=== PATIENT | male | born 1970 | race Caucasian/White ===

== ENCOUNTER 2019-08-27 23:08 | Inpatient (IN) ==
[2019-08-27] MEDS ORDERED: NARCAN ONE (23:37)
[2019-08-27] MEDS ORDERED: NARCAN IV ONE (23:41)
--- NOTE | 2019-08-28 00:01 | PROVIDER DOCUMENTATION ---
This chart was entered by Allyssa Castaneda Scribe, acting as scribe for Melany Vazquez MD. HPI-Psychological Disorder - General Chief Complaint: Unresponsive Stated Complaint: psych Time Seen by Provider: 08/27/19 23:36 Source: patient, EMS (First Response) Unable to obtain history due to:: altered Allergies/Adverse Reactions: Patient Allergies Allergy/AdvReac Type Severity Reaction Status Date / Time Unable to Assess Allergy Verified 08/27/19 23:20 Home Medications: Home Medication List Medication Instructions Recorded Confirmed Last Taken Type Unobtainable [Home Meds 08/27/19 08/27/19 Unknown History Unobtainable] - History of Present Illness-Psych Nature of Presenting Problem: Pt is a Callum Coughlin brought to the ED by EMS after they were called to a house where pt's friends stated he was "acting weird". EMS states that friend said " pt has hx of pysch issues and has recently quit taking his medication". Pt is unresponsive to voice and is pale in appearance. Onset/Duration: reports: abrupt, just prior to arrival, 1-3 hours ago Timing: reports: still present Severity: reports: severe Psychiatric Complaints: reports: altered mental status, other (responds to painful stimuli) Patient arrived by:: EMS called by spouse/family Review of Systems - Adult - REVIEW OF SYSTEMS - ADULT Constitutional: denies: chills, fever Eyes: reports: no symptoms reported Ears, Nose, Mouth & Throat: reports: no symptoms reported Cardiovascular: reports: see HPI, syncope Respiratory: reports: no symptoms reported Gastrointestinal: denies: diarrhea, vomiting Genitourinary: reports: no symptoms reported Musculoskeletal: reports: no symptoms reported Integumentary: reports: no symptoms reported Neurological: reports: see HPI, syncope Psychiatric: reports: no symptoms reported Endocrine: reports: no symptoms reported Hematologic/Lymphatic: reports: no symptoms reported Allergic/Immunologic: reports: no symptoms reported All Other Systems: Reviewed and Negative Past History - Adult - PAST MEDICAL HISTORY-ADULT Review of Records: reports: Nursing Assessment Review Physical Exam-Psych Focus - Physical Exam-Psych Exam Limited by: Altered Mental status Initial Vital Signs Reviewed: Yes (HR 120; O2 93 L RA) Appearance: disheveled Neurological: responds to pain, disoriented x 3 HENMT: normocephalic/atraumatic, other (constricted pupils; dry mucous membranes) Neck: supple, normal inspection Respiratory: no respiratory distress, no accessory muscle use, decreased breath sounds (bilaterally). negative: crackles, rales Cardiovascular: normal peripheral pulses, no murmur, tachycardia Abdominal Exam: normal bowel sounds, non tender, soft Back Exam: normal inspection Extremity: normal inspection, no pedal edema Integumentary: warm/dry, other (greyish pallor) Progress - PLAN OF CARE/RESULTS Progress/Plan/Lab Results: Vital Signs - 8 hr 08/27/19 23:12 08/28/19 00:15 Temperature 102.4 F H Pulse Rate 120 H 120 H Respiratory Rate 23 28 H Blood Pressure 131/86 121/86 O2 Sat by Pulse Oximetry 93 L 96 Laboratory Results - last 24 hr 08/27/19 08/27/19 08/27/19 00:06 00:06 23:35 WBC RBC Hgb Hct MCV MCH MCHC RDW Std Deviation Plt Count MPV Immature Gran % (Auto) Neut % (Auto) Lymph % (Auto) Hendricks % (Auto) Eos % (Auto) Baso % (Auto) Immature Gran # (Auto) Neut # (Auto) Lymph # (Auto) Hendricks # (Auto) Eos # (Auto) Baso # (Auto) PT INR PTT (Actin FS) Sodium 134 L Potassium 3.2 L Chloride 97 L Carbon Dioxide 22 L Anion Gap 16 BUN 9 Creatinine 0.6 L Estimated GFR/1.73 m2 > 60 BUN/Creatinine Ratio 15 Glucose 125 H Calculated Osmolality 268 Calcium 8.9 Total Bilirubin 0.90 AST 27 ALT 39 Alkaline Phosphatase 76 Creatine Kinase Troponin T High Sens Total Protein 7.4 Albumin 3.8 Globulin 4.0 Albumin/Globulin Ratio 1.0 Plasma Lactate Urine Source CATH Urine Color YELLOW Urine Turbidity CLEAR Urine pH 8.0 Ur Specific [place] 1.027 Urine Protein 70 A Ur Glucose (Stick) NEGATIVE Ur Ketones (Stick) 10 A Urine Blood NEGATIVE Urine Nitrite NEGATIVE Urine Bilirubin NEGATIVE Urobilinogen Dipstick 6 A Urine Leukocytes NEGATIVE Urine WBC (Auto) <10 Urine RBC (Auto) <10 U Epithel Cells (Auto) <10 Urine Bacteria (Auto) NEGATIVE Salicylates Urine Opiates Screen PRESUMPTIVE POSITIVE A Ur Oxycodone Screen NONE DETECTED Urine Methadone Screen NONE DETECTED U Propoxyphene Qual NONE DETECTED Acetaminophen < 1.2 L Ur Barbituates Screen NONE DETECTED Ur Tricyclics Screen NONE DETECTED Ur Phencyclidine Scrn NONE DETECTED Ur Amphetamines Screen PRESUMPTIVE POSITIVE A U Methamphetamines Scrn PRESUMPTIVE POSITIVE A U Benzodiazepines Scrn NONE DETECTED Urine Cocaine Screen NONE DETECTED U Cannabinoids Screen PRESUMPTIVE POSITIVE A Plasma/Serum Ethyl Alc Influenza A (Rapid) Influenza B (Rapid) 08/27/19 08/27/19 08/27/19 23:35 23:35 23:35 WBC 10.20 RBC 4.42 L Hgb 14.0 Hct 39.9 L MCV 90.3 MCH 31.7 H MCHC 35.1 RDW Std Deviation 13.3 Plt Count 195 MPV 11.0 H Immature Gran % (Auto) 0.2 Neut % (Auto) 84.6 H Lymph % (Auto) 10.3 L Hendricks % (Auto) 4.6 Eos % (Auto) 0.2 Baso % (Auto) 0.1 Immature Gran # (Auto) 0.02 Neut # (Auto) 8.63 H Lymph # (Auto) 1.05 L Hendricks # (Auto) 0.47 Eos # (Auto) 0.02 Baso # (Auto) 0.01 PT INR PTT (Actin FS) Sodium Potassium Chloride Carbon Dioxide Anion Gap BUN Creatinine Estimated GFR/1.73 m2 BUN/Creatinine Ratio Glucose Calculated Osmolality Calcium Total Bilirubin AST ALT Alkaline Phosphatase Creatine Kinase Troponin T High Sens Total Protein Albumin Globulin Albumin/Globulin Ratio Plasma Lactate 1.0 Urine Source Urine Color Urine Turbidity Urine pH Ur Specific [place] Urine Protein Ur Glucose (Stick) Ur Ketones (Stick) Urine Blood Urine Nitrite Urine Bilirubin Urobilinogen Dipstick Urine Leukocytes Urine WBC (Auto) Urine RBC (Auto) U Epithel Cells (Auto) Urine Bacteria (Auto) Salicylates Urine Opiates Screen Ur Oxycodone Screen Urine Methadone Screen U Propoxyphene Qual Acetaminophen Ur Barbituates Screen Ur Tricyclics Screen Ur Phencyclidine Scrn Ur Amphetamines Screen U Methamphetamines Scrn U Benzodiazepines Scrn Urine Cocaine Screen U Cannabinoids Screen Plasma/Serum Ethyl Alc Influenza A (Rapid) Influenza B (Rapid) 08/27/19 08/27/19 08/27/19 23:35 23:35 23:35 WBC RBC Hgb Hct MCV MCH MCHC RDW Std Deviation Plt Count MPV Immature Gran % (Auto) Neut % (Auto) Lymph % (Auto) Hendricks % (Auto) Eos % (Auto) Baso % (Auto) Immature Gran # (Auto) Neut # (Auto) Lymph # (Auto) Hendricks # (Auto) Eos # (Auto) Baso # (Auto) PT 13.2 INR 0.95 PTT (Actin FS) 25.6 Sodium Potassium Chloride Carbon Dioxide Anion Gap BUN Creatinine Estimated GFR/1.73 m2 BUN/Creatinine Ratio Glucose Calculated Osmolality Calcium Total Bilirubin AST ALT Alkaline Phosphatase Creatine Kinase 104 Troponin T High Sens 7 Total Protein Albumin Globulin Albumin/Globulin Ratio Plasma Lactate Urine Source Urine Color Urine Turbidity Urine pH Ur Specific [place] Urine Protein Ur Glucose (Stick) Ur Ketones (Stick) Urine Blood Urine Nitrite Urine Bilirubin Urobilinogen Dipstick Urine Leukocytes Urine WBC (Auto) Urine RBC (Auto) U Epithel Cells (Auto) Urine Bacteria (Auto) Salicylates Urine Opiates Screen Ur Oxycodone Screen Urine Methadone Screen U Propoxyphene Qual Acetaminophen Ur Barbituates Screen Ur Tricyclics Screen Ur Phencyclidine Scrn Ur Amphetamines Screen U Methamphetamines Scrn U Benzodiazepines Scrn Urine Cocaine Screen U Cannabinoids Screen Plasma/Serum Ethyl Alc Influenza A (Rapid) Influenza B (Rapid) 08/27/19 08/28/19 23:35 00:24 WBC RBC Hgb Hct MCV MCH MCHC RDW Std Deviation Plt Count MPV Immature Gran % (Auto) Neut % (Auto) Lymph % (Auto) Hendricks % (Auto) Eos % (Auto) Baso % (Auto) Immature Gran # (Auto) Neut # (Auto) Lymph # (Auto) Hendricks # (Auto) Eos # (Auto) Baso # (Auto) PT INR PTT (Actin FS) Sodium Potassium Chloride Carbon Dioxide Anion Gap BUN Creatinine Estimated GFR/1.73 m2 BUN/Creatinine Ratio Glucose Calculated Osmolality Calcium Total Bilirubin AST ALT Alkaline Phosphatase Creatine Kinase Troponin T High Sens Total Protein Albumin Globulin Albumin/Globulin Ratio Plasma Lactate Urine Source Urine Color Urine Turbidity Urine pH Ur Specific [place] Urine Protein Ur Glucose (Stick) Ur Ketones (Stick) Urine Blood Urine Nitrite Urine Bilirubin Urobilinogen Dipstick Urine Leukocytes Urine WBC (Auto) Urine RBC (Auto) U Epithel Cells (Auto) Urine Bacteria (Auto) Salicylates < 3.00 L Urine Opiates Screen Ur Oxycodone Screen Urine Methadone Screen U Propoxyphene Qual Acetaminophen Ur Barbituates Screen Ur Tricyclics Screen Ur Phencyclidine Scrn Ur Amphetamines Screen U Methamphetamines Scrn U Benzodiazepines Scrn Urine Cocaine Screen U Cannabinoids Screen Plasma/Serum Ethyl Alc Influenza A (Rapid) NEGATIVE Influenza B (Rapid) NEGATIVE Orders Category Date Time Status Admit - [facility] Routine AdmDCTranf 08/28/19 00:56 Active Activity - Strict Bedrest ORDERED Care 08/28/19 00:56 Active Call Admitting on Arrival AT ADMISSION Care 08/28/19 00:57 Active Cardiac Monitoring NOW Care 08/28/19 00:11 Active [place] Cath Insertion ORDERED Care 08/28/19 00:16 Active IV Insertion NOW Care 08/28/19 00:11 Completed NEWS Score >or=5:Order NEWS Bundle S.O. NOW Care 08/27/19 23:20 Active Neurological Check Q2H Care 08/28/19 00:56 Active Notify Provider of NEWS Score NOW Care 08/28/19 00:11 Active Resuscitation Status Routine Care 08/28/19 00:56 Ordered Vital Signs Order PER PADDS Care 08/28/19 00:56 Active Z-Document. for Tele Applied ORDERED Care 08/28/19 00:57 Active NPO Diet 08/28/19 00:57 Active CHEST-PORTABLE [RAD] Stat Exams 08/28/19 00:[address] HEAD W/O CONTRAST [CT] Stat Exams 08/27/19 23:46 Taken ACETAMINOPHEN [TDM] Stat Lab 08/27/19 23:35 Completed ALCOHOL BLOOD Stat Lab 08/27/19 23:35 Completed BLOOD CULTURE [BLDCUL] Stat Lab 08/27/19 23:45 Ordered CBC WITH ELECTRONIC DIFF [HEME] Stat Lab 08/27/19 23:35 Completed CK PROFILE [SP CHEM] Stat Lab 08/28/19 00:11 Completed COMPREHENSIVE METABOLIC PANEL [CHEM] Stat Lab 08/27/19 23:[address] Stat Lab 08/28/19 00:24 Completed LACTATE, PLASMA [CHEM] Lab 08/28/19 03:15 Ordered LACTATE, PLASMA [CHEM] Lab 08/28/19 06:15 Ordered LACTATE, PLASMA [CHEM] Stat Lab 08/27/19 23:35 Completed PROTIME WITH INR [COAG] Stat Lab 08/28/19 00:11 Completed PTT [COAG] Stat Lab 08/28/19 00:11 Completed SALICYLATES [TDM] Stat Lab 08/28/19 00:55 Completed TROPONIN T HIGH SENSITIVITY Stat Lab 08/28/19 00:11 Completed URINALYSIS W/POSS RFLX CULT [URINALYSIS] Stat Lab 08/27/19 00:06 Com[address] DRUG SCREEN [address] Stat Lab 08/27/19 00:06 Completed 0.9% Sodium Chloride Inj [Ns] 1,000 ml Med 08/28/19 00:56 Active IV 150 mls/hr 0.9% Sodium Chloride Inj [Ns] 1,000 ml Med 08/28/19 00:12 Discontinued IV 999 mls/hr 0.9% Sodium Chloride Inj [Ns] 1,000 ml Med 08/28/19 00:13 Discontinued IV 999 mls/hr Acetaminophen [Tylenol] Med 08/28/19 00:56 Active 650 mg PO Q6H PRN PRN Acetaminophen [Tylenol] Med 08/28/19 00:13 Discontinued 650 mg [place] NOW ONE Naloxone [Narcan] Med 08/27/19 23:37 Discontinued 2 mg .ROUTE .STK-MED ONE Naloxone [Narcan] Med 08/27/19 23:41 Discontinued 2 mg IV NOW ONE Piperacillin/Tazobactam [Zosyn] 4.5 gm Med 08/28/19 00:14 Discontinued 0.9% Sodium Chloride Inj [Ns] 100 ml IV NOW Potassium Chloride 40 Meq/Swi Med 08/28/19 00:33 Active 40 meq in 100 ml IV ONCE Vancomycin 1 gm/Ns Med 08/28/19 00:14 Discontinued 1 gm in 250 ml IV NOW O2 Per Protocol Stat Oth 08/28/19 00:11 Active Telemetry [OM.EQ] Routine Oth 08/28/19 00:56 Active EKG [EKG] Stat Ther 08/27/19 23:49 Ordered Transfer/Admit Order [TRANSFER] Routine Transfer 08/28/19 00:56 Ordered Patient with fever of unknown source. Meets sepsis criteria so covered with vanc and Zosyn. has a psych history but unable to botain hsitory from patient and no family at bedside. UDS + for multiple substances. Could be cause. Will need ICU admission. Spoke to Dr Casper, hospitalist loss prevention leader at [facility] who accepted patient for admission. Agrees with ICU bed. Orders placed. Result Diagrams: 08/27/19 23:35 08/27/19 23:35 - CT/MRI 1 CT Study: Head Impression: See EMR Report - CONSULTS/PCP/HOSPITALIST Notification #1 *Consult/PCP/Hospitalist*: Dr Casper Time Discussed: 00:50 Consult Disposition: Admit (ICU bed at [facility]) Departure - Departure Date of Disposition Decision: 08/28/19 Time of Disposition Decision: 00:50 DIAGNOSIS: Drug overdose, multiple drugs, Altered mental status, Sepsis, Fever, Hypokalemia, Dehydration Disposition: ADMITTED INPATIENT 09 Certified Medical Emergency: Emergent Condition: Critical - Critical Care Note This patient required my direct & personal management of CC.: Yes Total Time (mins): 65 Critical Care Statement: This patient required my direct personal management to treat or rule out processes, the absence of which, could potentiallly result in sudden, clinically significant life or limb threatening deterioration. Attestation - Physician/ KIMBER Attestation Patient care was provided by Advanced Practice Provider:: No The physician spent face to face time with patient:: Yes Advanced Practice Provider documentation review:: Supervising physician onsite and consulted in the evaluation and care of this patient. The physician did have a face to face encounter with the patient. This chart was documented by the indicated scribe, (Allyssa Castaneda, Salvadoribmaria isabel) and accurately reflects the services I performed and decisions made by me, Melany Vazquez MD, as attested by the provider's signature.
[2019-08-28 00:10] LABS: URINE SOURCE CATH
[2019-08-28] MEDS ORDERED: NS 1,000 ML IV ONE ×3 (00:12→00:56)
[2019-08-28] MEDS ORDERED: TYLENOL PR ONE (00:13)
[2019-08-28] MEDS ORDERED: VANCOMYCIN 1 GM/NS 1 GM/250 ML IVPB IV ONE ×4 (00:14→12:00)
[2019-08-28] MEDS ORDERED: ZOSYN 4.5 GM in NS 100 ML IV ONE (00:14)
[2019-08-28 00:15] LABS: ACETAMINOPHEN < 1.2 ug/mL (10-30); AGAP 16; ALBUMIN 3.8 g/dL (3.5-5.0); ALKALINE PHOSPHATASE 76 U/L (32-122); BUN 9 mg/dL (8-22); CALCIUM 8.9 mg/dL (8.8-10.2); CHLORIDE 97 mmol/L (98-107); COSMO 268; CREATININE 0.6 mg/dL (0.7-1.2); ESTIMATED GFR > 60; GLUCOSE 125 mg/dL (70-104); GOT 27 U/L (10-34); GPT 39 U/L (10-44); POTASSIUM 3.2 mmol/L (3.5-5.1); SODIUM 134 mmol/L (136-145); TCO2 22 mmol/L (25-35); TOTAL PROTEIN 7.4 g/dL (6.3-8.3)
[2019-08-28 00:17] LABS: BILIRUBIN URINE NEGATIVE (NEGATIVE); BLOOD URINE NEGATIVE (NEGATIVE); COLOR YELLOW; GLUCOSE URINE NEGATIVE (NEGATIVE); KETONE URINE 10 mg/dL (NEGATIVE); LEUKOCYTES URINE NEGATIVE (NEGATIVE); NITRITE URINE NEGATIVE (NEGATIVE); PROTEIN URINE 70 mg/dL (NEGATIVE); SP GRAVITY URINE 1.027; TURBIDITY URINE CLEAR (CLEAR); UROBILINOGEN URINE 6 mg/dL (NORMAL)
[2019-08-28 00:18] LABS: UR EPITHELIAL CELLS <10 /HPF (<10); URINE BACTERIA NEGATIVE /HPF; URINE RBC <10 /HPF (<10); URINE WBC <10 /HPF (<10)
[2019-08-28 00:23] LABS: BASO# 0.01 X1000 (0.0-0.2); BASO% 0.1 % (0.0-0.8); EOS# 0.02 X1000 (0.0-0.7); EOS% 0.2 % (0.0-10.0); HEMATOCRIT 39.9 % (42.0-52.0); IMM GRAN# 0.02 X1000 (0.0-0.04); IMM GRAN% 0.2 % (0.0-0.5); LYMPH# 1.05 X1000 (1.2-3.4); LYMPH% 10.3 % (20.5-51.1); MCH 31.7 PG (27-31); MCHC 35.1 g/dL (33-37); MCV 90.3 FL (81-99); MONO# 0.47 X1000 (0.11-0.59); MONO% 4.6 % (1.7-9.3); NEUT# 8.63 X1000 (1.4-6.5); NEUT% 84.6 % (42.2-75.2); PLT 195 X1000 (130-400); RBC 4.42 XMIL (4.7-6.1); RDW 13.3 % (11.5-14.5)
[2019-08-28 00:26] LABS: UR AMPHETAMINES QUAL PRESUMPTIVE POSITIVE (NONE DETECT); UR BARBITUATES QUAL NONE DETECTED (NONE DETECT); UR BENZODIAZEPIN QUAL NONE DETECTED (NONE DETECT); UR CANNABINOIDS QUAL PRESUMPTIVE POSITIVE (NONE DETECT); UR COCAINE QUAL NONE DETECTED (NONE DETECT); UR METHADONE QUAL NONE DETECTED (NONE DETECT); UR METHAMPHETAMINE QUAL PRESUMPTIVE POSITIVE (NONE DETECT); UR OPIATES QUAL PRESUMPTIVE POSITIVE (NONE DETECT); UR OXYCODONE QUAL NONE DETECTED (NONE DETECT); UR PCP QUAL NONE DETECTED (NONE DETECT); UR PROPOXYPHENE QUAL NONE DETECTED (NONE DETECT); UR TCA QUAL NONE DETECTED (NONE DETECT)
[2019-08-28] MEDS ORDERED: POTASSIUM CHLORIDE 40 MEQ/SWI 40 MEQ/100 ML IVPB IV ONE (00:33)
[2019-08-28 00:36] LABS: INR 0.95; PROTIME 13.2 Seconds (11.0-16.0); PTT 25.6 Seconds (22.3-41.8)
[2019-08-28] MEDS ORDERED: TYLENOL PO PRN (00:56)
[2019-08-28 01:01] LABS: INFLUENZA A NEGATIVE (NEGATIVE); INFLUENZA B NEGATIVE (NEGATIVE)
[2019-08-28] MEDS ORDERED: POTASSIUM CHLORIDE 20 MEQ/SWI 40 MEQ/200 ML IVPB ONE (01:53)
[2019-08-28] MEDS: POTASSIUM CHLORIDE 20 MEQ/SWI 20 MEQ/100 ML IVPB IV SCH ×2 (02:15→04:48)
--- NOTE | 2019-08-28 05:12 | EKG Report ---
Test Performed on : 08/28/2019 01:10:20 AM Test Reason : AMS Blood Pressure : / mmHG Vent. Rate : 116 BPM Atrial Rate : 116 BPM P-R Int : 172 ms QRS Dur : 082 ms QT Int : 306 ms P-R-T Axes : 073 022 040 degrees QTc Int : 425 ms Sinus tachycardia. with premature atrial complexes. Nonspecific ST abnormality Abnormal ECG No previous ECGs available Unconfirmed Result
[2019-08-28] MEDS ORDERED: OFIRMEV 1000 MG/ISOTONIC SOLN 1,000 MG/100 ML BOTTLE IV PRN (05:25)
[2019-08-28] MEDS ORDERED: ZOFRAN IV PRN (05:25)
[2019-08-28] MEDS ORDERED: VANCOMYCIN IV PER PHARMACY MISC SCH ×2 (05:25→10:15)
[2019-08-28] MEDS ORDERED: AMIDATE ONE (05:28)
[2019-08-28] MEDS ORDERED: QUELICIN ONE (05:29)
[2019-08-28] MEDS ORDERED: AMIDATE IV ONE (05:46)
[2019-08-28] MEDS ORDERED: QUELICIN IV ONE (05:48)
[2019-08-28] MEDS ORDERED: DIPRIVAN 1% 1,000 MG/100 ML BOTTLE ONE (06:09)
[2019-08-28] MEDS ORDERED: DIPRIVAN IV SCH (06:23)
[2019-08-28] MEDS ORDERED: DIPRIVAN 1% 100 ML IV SCH (06:30)
--- NOTE | 2019-08-28 06:41 | Diag Imaging Result Doc PS360 ---
CT HEAD W/O CONTRAST - 08/28/2019 INDICATION: pupil changes COMPARISON: 08/27/2019 FINDINGS: The ventricles and sulci are normal in size and contour. Ojeda-white matter differentiation is preserved. No intracranial mass or hemorrhage. There is extensive sinusitis of paranasal sinuses stable from prior. Mastoids and middle ears are clear. IMPRESSION: Stable extensive sinusitis. No acute intracranial abnormality. This exam was performed using automated exposure control, adjustment of mA or kV according to patient size, and/or use of iterative reconstruction technique Electronically signed by Brett Noyola 08/28/2019 6:38 AM
--- NOTE | 2019-08-28 06:42 | Diag Imaging Result Doc PS360 ---
CHEST-PORTABLE - 08/28/2019 INDICATION: sepsis protocol COMPARISON: None FINDINGS: There is hazy infiltrate in the right lung base. Heart size is normal. No pneumothorax or pleural effusion. IMPRESSION: Infiltrate in the right lung base compatible with pneumonia. Electronically signed by Brett Noyola 08/28/2019 6:39 AM
[2019-08-28] MEDS ORDERED: ZOSYN 4.5 GM in NS 100 ML IV SCH (06:45)
[2019-08-28] MEDS ORDERED: DECADRON IV ONE (06:50)
[2019-08-28] MEDS ORDERED: LEVOPHED 8 MG in D5 1/2 NS 250 ML IV SCH (07:00)
--- NOTE | 2019-08-28 07:02 | Diag Imaging Result Doc PS360 ---
EXAM: CT HEAD W/O CONTRAST 08/27/2019 HISTORY: AMS TECHNIQUE: This exam was performed using automated exposure control, adjustment of mA or kV according to patient size, and/or use of iterative reconstruction technique. COMMENT: There is mucosal thickening in the left maxillary sinus and complete opacification of the right maxillary sinus. There is mucosal thickening of both sphenoid sinuses and throughout the ethmoid air cells bilaterally. The calvarium is intact. There is some fluid in the mastoid air cells on the right. There is no evidence of intracranial mass effect, bleed, or abnormal extra-axial fluid collection. There is some motion artifact. There are no previous studies available for comparison. IMPRESSION: No evidence of acute intracranial disease. Sinusitis. Right mastoid effusion. Electronically signed by Jeffy Alfonso 08/28/2019 6:59 AM
--- NOTE | 2019-08-28 07:20 | Diag Imaging Result Doc PS360 ---
EXAM: CT THORAX W/O CONTRAST 08/28/2019 HISTORY: SOB, AMS, abnormal CXR, intubated TECHNIQUE: This exam was performed using automated exposure control, adjustment of mA or kV according to patient size, and/or use of iterative reconstruction technique. COMMENT: There is ill-defined opacity in the posterior lower lobes bilaterally. There is an endotracheal tube with its tip well above the cristiano. There are calcified and noncalcified nodular opacities in the right lower lobe. There is an 8 mm noncalcified nodule on image 63. There is calcification in the coronary arteries. There is right paratracheal adenopathy. No abnormal fluid collections are present. The regional skeleton appears to be intact. IMPRESSION: Bibasilar opacities possibly representing pneumonia. Nonspecific right lower lobe pulmonary nodule. Right paratracheal adenopathy. Electronically signed by Jeffy Alfonso 08/28/2019 7:17 AM
[2019-08-28] MEDS: ZOSYN 3.375 GM in NS 50 ML IV SCH ×4 (07:44→23:56)
[2019-08-28] MEDS: NS 1,000 ML IV SCH ×2 (07:44→12:40)
[2019-08-28] MEDS ORDERED: CORDARONE ONE (09:00)
[2019-08-28] MEDS ORDERED: EPINEPHRINE SYRINGE ONE (09:00)
[2019-08-28] MEDS ORDERED: ATROPINE SYRINGE ONE (09:00)
[2019-08-28] MEDS ORDERED: CALCIUM CHLORIDE ONE (09:00)
[2019-08-28] MEDS ORDERED: SODIUM CHLORIDE 0.9% INJ SCH (09:00)
[2019-08-28] MEDS ORDERED: SODIUM BICARBONATE 8.4% ONE (09:00)
--- NOTE | 2019-08-28 09:28 | HISTORY AND PHYSICAL ---
CHIEF COMPLAINT: Was found unresponsive. HISTORY OF PRESENT ILLNESS: This patient appears to be a maybe late 30s to early 40s in his age. Reviewing the ER physician's notes as this patient is intubated, and is completely unresponsive. He is unable to give any information. He was brought into the emergency department after EMS was called to a friend's house. Apparently, the patient's friend stated that the patient was acting weird, and that he has a history of psych issues, and had recently quit taking his medication. At that time, he was unresponsive to voice, and was pale in appearance. He did respond to painful stimuli. He was continued to be worked up but because he was so unresponsive and there was a change in his breathing pattern, he was electively intubated. They used the 8.0 endotracheal tube, used 100 mg of Succinylcholine and 20 mg of Etomidate. At that time, they noted that he had also had some changes in his left pupil as it appeared that his left pupil had become constricted and the right was less reactive so they re-scanned his head. The initial report was cerebral edema, but then the official report came out, that it was more motion and not cerebral edema. In the meantime, [facility] was called, who said that they would not accept the patient until his fever of unknown origin at the time was ruled out. Once that result came back as no cerebral edema, the decision was made to keep him in the [facility]. He will transfer over to [facility] ICU. He has since been started on Levophed in order to maintain an adequate blood pressure. His fever on admission was 102.4 and is felt to be related to the bibasilar pneumonia later found on chest CT. His influenza A and B are both negative. His original white blood cell count was normal. He never had a high lactate. Urine drug screen was extremely positive. He had opiates, amphetamines, methamphetamines, and cannabinoids. He is negative for alcohol. During this examination, now that everything is settled down and it has been awhile since he has had propofol, the assessment reveals that there are no reflexes present. He is flaccid, and unresponsive to pain. There is no corneal, no pupillary reflex, and no gag at this time so we will keep, evaluate, and treat. PAST MEDICAL HISTORY: All we know is psychiatric issues. SURGICAL HISTORY: Unknown. SOCIAL HISTORY: Unknown. However, he has positive opiates, methamphetamines, and cannabinoids. FAMILY HISTORY: Unknown. REVIEW OF SYSTEMS: Unable to obtain. PHYSICAL EXAMINATION: VITAL SIGNS: Temperature 97.5 degrees, heart rate 110, respiratory rate 14, blood pressure 108/78, and O2 saturation 100% on mechanical ventilation. GENERAL: Unresponsive. HEENT: He is endotracheally intubated. Pupils nonreactive, size 5. Negative corneal. Negative gag. NECK: Trachea midline. CARDIOVASCULAR: S1, S2. Tachycardic rate and rhythm. No rubs, gallops, or murmurs. No lower extremity edema. +2 dorsalis and radial pulses. Negative JVD or carotid bruits. PULMONARY: Clear to auscultation and mechanically ventilated, not breathing over the ventilator. GI: Soft. Hypoactive bowel sounds. EXTREMITIES: Flaccid. Nonreactive to pain. NEUROLOGIC: No gag, no corneal, no pupillary reflex. No response to pain. SKIN: Warm, dry, and intact. LABORATORY DATA: White blood cells 10,000, hemoglobin 14, hematocrit 39, and platelet count 195,000. INR 0.95, PTT 25.6. Sodium 134, potassium 3.2, BUN 9, creatinine 0.6, glucose 125, calcium 8.9, bilirubin 0.9, AST 27, ALT 39, CK 104, troponin 7. Albumin 3.8, lactate 1.0, 1.4, and 1.9. Urinalysis 70 protein, 10 ketones, 6 urobilinogen. Toxicology, opiates, positive amphetamines and methamphetamines positive, cannabinoids positive. Salicylates less than 3. Acetaminophen less than 1.2. Alcohol zero. Influenza A and B negative. IMAGING: EKG with sinus tachycardia, PACs rate 116. QTc 425. Chest x-ray with infiltrate of the right lung base compatible with pneumonia. Head CT, the first one around midnight. No evidence of intracranial disease or sinusitis, and right mastoid effusion. Repeat head CT due to pupil changes. Stable extensive sinusitis. No intracranial changes. Chest CT at 6:00 in the morning, bibasilar opacities representing pneumonia, but nonspecific right lower lobe pulmonary nodule and right paratracheal adenopathy. ASSESSMENT AND PLAN: 1. Unresponsive. Currently, he has no reflexes, and he is intubated. He will be monitored in the ICU. Neurology consulted. 2. Acute respiratory failure, hypoxemic and can change in respiratory status requiring intubation. We will continue with nebulizers and consult Pulmonary. 3. Poly illicit drug use. 4. Hypokalemia. He received potassium. 5. Sepsis secondary to bibasilar pneumonia with fever on broad-spectrum antibiotics. IV fluids. We will rule out other sources of infection. 6. Bibasilar pneumonia. Please see previous number. 7. Deep venous thrombosis prophylaxis. SCD's. Dictated by MELINA Arteaga for Ari Gupta MD cc: MELINA Arteaga MD [facility]
[2019-08-28 09:54] LABS: BLOOD TYPE ARTERIAL; SAMPLE BLOOD
[2019-08-28 09:55] LABS: BE -1.5 mmoll (-3.0-3.0); HCO3-(ACT) 23.7 mmoll (20.0-26.0); PO2(98.6) 432 mmHg (60-100); SAO2 100.7 % (95.0-100.0); THB 14.3 g/dL (11.5-17.4); pH(98.6) 7.27 (7.35-7.45)
[2019-08-28 09:56] LABS: ALLEN TEST YES; METHB 1.4 % (0.0-1.5); MODALITY VENTILATOR; O2(CT) 20.5 mL/dL (15.0-23.0); O2HB 96.5 % (95.0-99.0); SRATE 14 BPM; TVOL 500 mL
[2019-08-28 09:57] LABS: PCO2(98.6) 58 mmHg (35-45)
--- NOTE | 2019-08-28 11:15 | Diag Imaging Result Doc PS360 ---
CHEST-PORTABLE - 08/28/2019 10:59 AM INDICATION: OG PLACEMENT COMPARISON: 12:24 AM FINDINGS: There is an orogastric tube in good position with the tip in the stomach. IMPRESSION: Orogastric tube in good position with the tip in the stomach. Electronically signed by Brett Noyola 08/28/2019 11:12 AM
[2019-08-28] MEDS: FLAGYL 500 MG/NS 500 MG/100 ML IVPB IV SCH ×3 (12:41→21:55)
[2019-08-28] MEDS: PROTONIX IV SCH (12:41)
[2019-08-28 13:02] LABS: BASO# 0.06 X1000 (0.0-0.2); BASO% 0.2 % (0.0-0.8); EOS# 0.13 X1000 (0.0-0.7); EOS% 0.4 % (0.0-10.0); HEMATOCRIT 43.4 % (42.0-52.0); HEMOGLOBIN 14.8 g/dL (14.0-18.0); IMM GRAN# 0.68 X1000 (0.0-0.04); IMM GRAN% 1.9 % (0.0-0.5); LYMPH# 1.08 X1000 (1.2-3.4); LYMPH% 2.9 % (20.5-51.1); MCH 31.5 PG (27-31); MCHC 34.1 g/dL (33-37); MCV 92.3 FL (81-99); MONO# 1.75 X1000 (0.11-0.59); MONO% 4.8 % (1.7-9.3); MPV 10.6 FL (7.4-10.4); NEUT# 32.97 X1000 (1.4-6.5); NEUT% 89.8 % (42.2-75.2); PLT 194 X1000 (130-400); RDW 14.4 % (11.5-14.5); WBC 36.67 X1000 (4.8-10.8)
--- NOTE | 2019-08-28 13:12 | PROGRESS NOTE ---
DATE: 08/28/2019 SUBJECTIVE: The patient is seen after transfer from [place] clinically I feel like the patient has brain- criteria. I cannot get corneal reflexes, oculocephalic. Eyes remain midline, they do not invert. No gag, no cough reflex, no pain response, no spontaneous breathing that is apparent. The patient came in altered, several drugs in his system, became unresponsive and was intubated. PROBLEM LIST: 1. He is here for acute respiratory failure, not protecting his airway, possibly from drug overdose or anoxic injury. We will continue ventilatory support. Pulmonary is following. 2. Encephalopathy, which is either anoxic or metabolic or both. I really cannot get much out of him. We are going to get a Neurology consult. I agree with an EEG and see how he does. His head CT really did show too much. There was initial concern about cerebral edema, but it is not clear, that was not our interpretation here although I am suspicious he has had some sort of injury one way or another. We will continue supportive measures until Neurology can further evaluate him. TIME SPENT: A 35 minute critical care time for anoxic injury and mechanical ventilation evaluation for brain , 35 critical care time. This is a [id number] encounter note with Zofia Field. cc: Ari Gupta MD
[2019-08-28 13:17] LABS: FREE T4 1.49 ng/dL (0.93-1.70); TSH 0.68 uIUmL (0.27-4.20)
[2019-08-28 13:19] LABS: AGAP 8; ALBUMIN 3.6 g/dL (3.5-5.0); ALKALINE PHOSPHATASE 70 U/L (32-122); BUN 6 mg/dL (8-22); CHLORIDE 119 mmol/L (98-107); COSMO 302; CREATININE 0.7 mg/dL (0.7-1.2); ESTIMATED GFR > 60; GLUCOSE 138 mg/dL (70-104); GOT 19 U/L (10-34); GPT 32 U/L (10-44); MAGNESIUM 1.9 mg/dL (1.5-2.7); POTASSIUM 4.2 mmol/L (3.5-5.1); SODIUM 152 mmol/L (136-145); TCO2 25 mmol/L (25-35); TOTAL BILIRUBIN 1.09 mg/dL (0.20-1.00); TOTAL PROTEIN 7.1 g/dL (6.3-8.3)
[2019-08-28] MEDS ORDERED: NARCAN IV ONE (13:35)
[2019-08-28 13:55] LABS: LYMPHS 6 % (21-51); MONO 3 % (1-9); SEGS 91 % (42-75)
--- NOTE | 2019-08-28 14:36 | NEUROLOGY CONSULTATION ---
DATE: 08/28/2019 HISTORY OF PRESENT ILLNESS: This patient has not been identified. Report I have is taken from conversation with staff and review of the hospital record. He was apparently using illicit drugs intravenously with a religious leader. 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 He was reported to be combative, but I do not have firsthand knowledge of that, nor have I seen recorded description of that behavior. There was reported to be a decrease in his responsiveness and a change in breathing. He was intubated and eventually transferred to [facility]. He received one dose of naloxone 2 mg IV without apparent clinical change. He received paralytic and short course of propofol about 8 hours before my examination. Urine drug screen was positive for opiates, amphetamines, methamphetamine, cannabinoids. Chemistry profile showed sodium 134, later 152, blood sugars low 100s, nothing else remarkable, nothing that would be typically associated with encephalopathy. There was reported initial temperature of 102.4 degrees. He has been afebrile for approximately 12 hours. There is imaging evidence of bilateral pneumonia, and CT of the chest showing question of right lower lobe pulmonary nodule and right paratracheal adenopathy. Temp is 97 degrees Fahrenheit. On exam, he is supine, intubated, motionless. There was no response to vigorous noxious stimulation of each limbs and over the forehead. There was no lateral eye movement with passive head turning. Pupils are 4-6 mm and there was no pupil reaction to sustained bright light. There was no corneal reflex. There is no gag with wiggle of ET tube. He did not breathe above the ventilator. Plantar response is silent bilaterally. Reflexes are absent throughout. Limb tone is reduced throughout. Neck is supple. IMPRESSION: No clinical evidence of brain function. In light of the multiply-positive admission drug screen, uncertain history (unknown cause of coma), relatively short time frame since loss of consciousness, unremarkable CT several hours after onset of coma, I think we should continue support, at least short term. We need to continue to maintain temperature and follow. I do not think any ancillary studies to confirm absence of brain function or lack of cerebral blood flow would cash management associate at this point. Eventually, we might consider one of these studies. Thanks for asking Neurology to see this patient. cc: MD HAILY Dasilva III
--- NOTE | 2019-08-28 14:51 | EKG Report ---
Test Performed on : 08/28/2019 1:47:36 PM Test Reason : follow up Blood Pressure : / mmHG Vent. Rate : 097 BPM Atrial Rate : 097 BPM P-R Int : 140 ms QRS Dur : 092 ms QT Int : 370 ms P-R-T Axes : 084 058 000 degrees QTc Int : 469 ms Normal sinus rhythm. Increased R/S ratio in V1, consider early transition or posterior infarct Abnormal ECG When compared with ECG of 28-AUG-2019 13:47, (Unconfirmed) No significant change was found Confirmed by Rocco Mcgill MD ([id number]) on 08/30/2019 12:39:36 PM
[2019-08-28] MEDS: D5 1/2 NS 1,000 ML IV SCH (15:48)
--- NOTE | 2019-08-28 21:17 | CONSULTATION ---
DATE OF CONSULTATION: 08/28/2019 CHIEF COMPLAINT: Unresponsiveness. HISTORY OF PRESENT ILLNESS: This is a male patient who has not been identified. Age is unknown. Report taken from staff and hospital records. The patient was positive for illicit drugs in his system, positive for amphetamines, methamphetamine, opiates, and cannabinoids. He is on mechanical ventilation during assessment. Chest CT revealed bibasilar opacities possibly representing pneumonia, nonspecific right lower lobe pulmonary nodule, and right paratracheal adenopathy. PAST MEDICAL HISTORY: Psychiatric issues. PAST SURGICAL HISTORY: Unknown. SOCIAL HISTORY: Unknown; however, he is positive for opiates, methamphetamine, and cannabinoids. FAMILY HISTORY: Unknown. REVIEW OF SYSTEMS: Unable to obtain. PHYSICAL EXAMINATION: VITAL SIGNS: Blood pressure 91/59, respiratory rate 19, pulse rate 106, temperature 99. On mechanical ventilation, 02 saturation is 95%. GENERAL: Unresponsive on mechanical ventilation. HEENT: He is endotracheally intubated. Pupils are nonreactive. NECK: Trachea midline. CARDIOVASCULAR: S1 and S2 auscultated. Regular rate and rhythm. No rubs, gallops or murmurs. No lower extremity edema. PULMONARY: Clear to auscultation. GI: Soft. Decreased bowel sounds in all 4 quadrants. EXTREMITIES: Wasted. NEUROLOGIC: No response to pain. SKIN: Warm, dry and intact. LABORATORY DATA: White blood cells 36.67, red blood cells 4.70, hemoglobin 14.8, hematocrit 43.4. Has a pH of 7.27, pCO2 of 58, pO2 of 432, HCO3 of 23.7, base excess of -1.5, oxyhemoglobin of 96.5. Sodium 152, potassium 4.2, chloride 119, carbon dioxide 25, glucose 138. AST 19, ALT 32, protein 7.1. Chest CT revealed above in HPI. Chest x-ray revealed infiltrate in the right lung base compatible with pneumonia. Head CT: No acute intracranial abnormality. ASSESSMENT/PLAN: 1. Acute respiratory failure, hypoxemic. Will continue mechanical ventilation. Will titrate and monitor patient responses per protocol. 2. Bibasilar pneumonia. Continue antibiotics as prescribed. 3. Hypokalemia. He received potassium. 4. Illicit polydrug user. 5. Encephalopathy. Neurology following. Continue gastrointestinal prophylaxis with Protonix. Thank you for the courtesy of this consult. Spent 35 minutes with the patient. Dictated by MELINA Leon for Deborah Echeverria MD cc: MELINA Leon MD
[2019-08-29] MEDS: VANCOMYCIN 1,800 MG in NS 250 ML IV SCH ×2 (01:15→12:41)
[2019-08-29] MEDS: D5 1/2 NS 1,000 ML IV SCH ×3 (01:16→10:30)
[2019-08-29] MEDS: LEVOPHED 8 MG in D5 1/2 NS 250 ML IV SCH ×2 (02:56→16:26)
[2019-08-29] MEDS: FLAGYL 500 MG/NS 500 MG/100 ML IVPB IV SCH ×4 (04:03→21:32)
[2019-08-29 05:01] LABS: ALLEN TEST YES; BE -0.2 mmoll (-3.0-3.0); BLOOD TYPE ARTERIAL; HCO3-(ACT) 24.7 mmoll (20.0-26.0); METHB 1.3 % (0.0-1.5); O2(CT) 25.1 mL/dL (15.0-23.0); O2HB 95.4 % (95.0-99.0); PO2(98.6) 100 mmHg (60-100); SAMPLE BLOOD; SAO2 98.5 % (95.0-100.0); SRATE 14 BPM; THB 18.7 g/dL (11.5-17.4); TVOL 550 mL; pH(98.6) 7.33 (7.35-7.45)
[2019-08-29 05:02] LABS: MODALITY VENTILATOR; PCO2(98.6) 51 mmHg (35-45)
[2019-08-29] MEDS: ZOSYN 3.375 GM in NS 50 ML IV SCH ×2 (05:57→12:41)
[2019-08-29] MEDS: DUONEB (A & A) INH SCH ×7 (06:07→23:30)
--- NOTE | 2019-08-29 08:23 | Diag Imaging Result Doc PS360 ---
EXAM: CHEST-1 VIEW INDICATION: SOB TECHNIQUE: One view COMPARISON: 08/28/2019 FINDINGS: Support tubes and lines are in stable positions. The mild right basilar infiltrate appears to have improved slightly. No new consolidation is identified. Cardiac silhouette is stable. IMPRESSION: Interval improvement of the mild right basilar infiltrate. Electronically signed by Callum Gallegos 08/29/2019 8:21 AM
[2019-08-29] MEDS: PROTONIX IV SCH (09:10)
[2019-08-29 13:13] LABS: BASO# 0.03 X1000 (0.0-0.2); BASO% 0.1 % (0.0-0.8); HEMATOCRIT 42.4 % (42.0-52.0); IMM GRAN# 0.14 X1000 (0.0-0.04); IMM GRAN% 0.5 % (0.0-0.5); LYMPH# 1.86 X1000 (1.2-3.4); LYMPH% 6.5 % (20.5-51.1); MCH 31.7 PG (27-31); MCV 96.1 FL (81-99); MONO# 1.12 X1000 (0.11-0.59); MONO% 3.9 % (1.7-9.3); MPV 10.7 FL (7.4-10.4); NEUT# 25.55 X1000 (1.4-6.5); PLT 242 X1000 (130-400); RBC 4.41 XMIL (4.7-6.1); RDW 15.2 % (11.5-14.5)
[2019-08-29 13:45] LABS: CHLORIDE > 140 mmol/L (98-107)
[2019-08-29 13:48] LABS: ALB/GLOB RATIO 0.6; ALBUMIN 2.7 g/dL (3.5-5.0); ALKALINE PHOSPHATASE 75 U/L (32-122); BUN 11 mg/dL (8-22); CALCIUM 9.2 mg/dL (8.8-10.2); COSMO 348; ESTIMATED GFR > 60; GLUCOSE 132 mg/dL (70-104); GOT 12 U/L (10-34); GPT 25 U/L (10-44); POTASSIUM 3.1 mmol/L (3.5-5.1); SODIUM 176 mmol/L (136-145); TCO2 24 mmol/L (25-35); TOTAL BILIRUBIN 0.53 mg/dL (0.20-1.00); TOTAL PROTEIN 7.5 g/dL (6.3-8.3)
[2019-08-29] MEDS ORDERED: D5W 1,000 ML IV SCH ×4 (14:00→17:15)
--- NOTE | 2019-08-29 14:30 | PROGRESS NOTE ---
DATE: 08/29/2019 SUBJECTIVE: Patient has no major complaints. Blood pressure 88/54, heart rate 85, respiratory rate 14, temp is 98.2 degrees, T-max 100.1 degrees. Cardiovascular regular rate and rhythm. Pulmonary bilateral breath sounds clear to auscultation. GI was soft, nontender, nondistended. Bowel sounds were positive. Neuro examination, there is no corneal reflex. He does not withdraw to painful stimuli. There is no gag reflex. There is no cough reflex. Oculocephalic is midline, which is abnormal. Cold calorics. There was no eye deviation when normal saline was put into the left ear, which is also consistent with clinical brain . I performed a brief apnea test. He did not have any spontaneous breathing after about 10 seconds before machine breath was triggered. LABORATORY DATA: He may be profoundly hypernatremic. I am not sure if this is a function of his encephalopathy, possibly a diabetes insipidus type situation. He does also appear to be in a hyperaldosteronism state with potassium that is low but he has not been getting any free water or anything to that effect. PROBLEM LIST: 1. Clinical brain . I think he had either an anoxic injury from his drug use, possibly subclinical stroke. Seizure is a possibility although he is not continuing to seize. Per Dr. Laguerre, we are going to monitor him because of his concurrent drug use for at least 72 hours before performing any other testing. I think we will probably do a CT angiogram either tomorrow or Saturday. Consider EEG at his discretion but his prognosis is poor. This has been over 48 hours and he has not had any meaningful neurological recovery. 2. Acute respiratory failure. He is on ventilator. He has pneumonia, pulmonary is following. 3. Aspiration-type pneumonia. He is on vancomycin and Zosyn. This will be day 2. That being said, with vancomycin and Zosyn, the Zosyn has fairly high salt load, so I am going to stop it and favor cefepime. He is on Flagyl and he is on vancomycin. 4. Hypernatremia, likely a function of just limited free water intake. I am going to switch him to D5 and we will start normal free water flushes. We probably need to start tube feeds but right now we need to correct his sodium before we start adding tube feeds. This may be a diabetes insipidus type situation associated with his brain injury. We will continue to monitor. 5. Septic shock. He is still on vasopressors. I have not been able to wean that. DISPOSITION: Prognosis is extremely poor, not just from my mortality standpoint, but clinically I feel he is brain and Dr. Laguerre feels the same. I explained this to his family because we finally have been able to contact family thanks to the urgent work of social worker palliative care and explained that he is not likely to recover from this. This is not a persistent vegetative state. This is brain and he is being kept alive by a ventilator cardiovascular support. He is not having any spontaneous activity, either brain or on his own, and unlikely to recover. They are obviously digesting this information. I am working on a DNR status with them, at least DNR 2 for no CPR. They are thinking about that at this point. We will continue to work with them. Palliative Care consult when available, but I think it will most likely declare itself in the next one to two days. This is a COVID-19 case because we cannot rule that out, although his risk factors are small. He did have fever and he has respiratory failure but we do not know if the contacts at the house where he was ingesting drugs could have been exposed. That is pending as well. Continue supportive care. 35 minute critical care time for vent, management, brain evaluation. Continued vasopressors for septic shock. cc: Ari Gupta MD
[2019-08-29 15:09] LABS: LYMPHS 5 % (21-51); MONO 2 % (1-9); SEGS 93 % (42-75)
[2019-08-29] MEDS: MAXIPIME 2 GM/NS 2 GM/100 ML IVPB IV SCH (15:09)
[2019-08-29] MEDS: LACRI-LUBE OPH OINT BOTH EYES PRN ×2 (16:26→21:33)
[2019-08-29 17:01] LABS: BUN 11 mg/dL (8-22); CREATININE 0.9 mg/dL (0.7-1.2); ESTIMATED GFR > 60; POTASSIUM 2.7 mmol/L (3.5-5.1)
[2019-08-29 17:06] LABS: AGAP 9; CHLORIDE 143 mmol/L (98-107); COSMO 353; GLUCOSE 261 mg/dL (70-104); TCO2 23 mmol/L (25-35)
[2019-08-29 17:08] LABS: SODIUM 175 mmol/L (136-145)
[2019-08-29] MEDS ORDERED: KLOR-CON PO ONE (17:13)
[2019-08-29] MEDS: POTASSIUM CHLORIDE 20 MEQ/SWI 20 MEQ/100 ML IVPB IV SCH ×2 (17:30→19:32)
--- NOTE | 2019-08-29 18:01 | PROVIDER PROGRESS NOTE ---
Progress Note Dr. Echeverria Progress Note/Pulmonary and or critical care Subjective: The patient is lying in bed sedated on mechanical ventilation. No change from yesterday. Objective: PHYSICAL EXAMINATION: VITAL SIGNS: Blood pressure 89/53, respiratory rate 14, pulse rate 87, temperature 99. On mechanical ventilation, 02 saturation is 95%. GENERAL: Unresponsive on mechanical ventilation. HEENT: He is endotracheally intubated. Pupils are nonreactive/fixed NECK: Trachea midline. CARDIOVASCULAR: S1 and S2 auscultated. Regular rate and rhythm. No rubs, gallops or murmurs. No lower extremity edema. PULMONARY: Clear to auscultation. GI: Soft. Decreased bowel sounds in all 4 quadrants. EXTREMITIES: Wasted. NEUROLOGIC: No response to pain SKIN: Warm, dry and intact. Dr. Echeverria did assessment and management. MELINA Leon did scribing only. LABS/Diagnostic data Laboratory Results 08/27/19 08/28/19 08/29/19 00:06 21:54 04:51 WBC RBC Hgb Hct MCV MCH MCHC RDW Std Deviation Plt Count MPV Immature Gran % (Auto) Neut % (Auto) Lymph % (Auto) [place] % (Auto) Eos % (Auto) Baso % (Auto) Immature Gran # (Auto) Neut # (Auto) Lymph # (Auto) [place] # (Auto) Eos # (Auto) Baso # (Auto) Segmented Neutrophils Lymphocytes Monocytes Specimen Type ARTERIAL Sample Site R RADIAL pH 7.33 L pCO2 51 H* pO2 100 HCO3 24.7 Base Excess -0.2 Oxyhemoglobin 95.4 ABG O2 Sat (Calculated) 25.1 H ABG O2 Saturation 98.5 ABG Carboxyhemoglobin 1.80 ABG Methemoglobin 1.3 Scott Test YES A-a O2 Difference 193.0 Total Hemoglobin 18.7 H Lactate 1.40 Blood Gas Modality VENTILATOR Spontaneous Rate 14 FiO2 % 50.0 Tidal Volume 550 PEEP 5.0 Sodium Potassium Chloride Carbon Dioxide Anion Gap BUN Creatinine Estimated GFR/1.73 m2 BUN/Creatinine Ratio Glucose POC Glucose 124 H Calculated Osmolality Calcium Total Bilirubin AST ALT Alkaline Phosphatase Total Protein Albumin Globulin Albumin/Globulin Ratio Urine Opiates Screen PRESUMPTIVE POSITIVE A Ur Oxycodone Screen NONE DETECTED Urine Methadone Screen NONE DETECTED U Propoxyphene Qual NONE DETECTED Ur Barbituates Screen NONE DETECTED Ur Tricyclics Screen NONE DETECTED Ur Phencyclidine Scrn NONE DETECTED Ur Amphetamines Screen PRESUMPTIVE POSITIVE A U Methamphetamines Scrn PRESUMPTIVE POSITIVE A U Benzodiazepines Scrn NONE DETECTED Urine Cocaine Screen NONE DETECTED U Cannabinoids Screen PRESUMPTIVE POSITIVE A 08/29/19 08/29/19 08/29/19 05:52 09:09 12:55 WBC 28.70 H RBC 4.41 L Hgb 14.0 Hct 42.4 MCV 96.1 MCH 31.7 H MCHC 33.0 RDW Std Deviation 15.2 H Plt Count 242 MPV 10.7 H Immature Gran % (Auto) 0.5 Neut % (Auto) 89.0 H Lymph % (Auto) 6.5 L [place] % (Auto) 3.9 Eos % (Auto) 0.0 Baso % (Auto) 0.1 Immature Gran # (Auto) 0.14 H Neut # (Auto) 25.55 H Lymph # (Auto) 1.86 [place] # (Auto) 1.12 H Eos # (Auto) 0.00 Baso # (Auto) 0.03 Segmented Neutrophils 93 H Lymphocytes 5 L Monocytes 2 Specimen Type Sample Site pH pCO2 pO2 HCO3 Base Excess Oxyhemoglobin ABG O2 Sat (Calculated) ABG O2 Saturation ABG Carboxyhemoglobin ABG Methemoglobin Scott Test A-a O2 Difference Total Hemoglobin Lactate Blood Gas Modality Spontaneous Rate FiO2 % Tidal Volume PEEP Sodium Potassium Chloride Carbon Dioxide Anion Gap BUN Creatinine Estimated GFR/1.73 m2 BUN/Creatinine Ratio Glucose POC Glucose 115 H 121 H Calculated Osmolality Calcium Total Bilirubin AST ALT Alkaline Phosphatase Total Protein Albumin Globulin Albumin/Globulin Ratio Urine Opiates Screen Ur Oxycodone Screen Urine Methadone Screen U Propoxyphene Qual Ur Barbituates Screen Ur Tricyclics Screen Ur Phencyclidine Scrn Ur Amphetamines Screen U Methamphetamines Scrn U Benzodiazepines Scrn Urine Cocaine Screen U Cannabinoids Screen 08/29/19 08/29/19 12:55 14:45 WBC RBC Hgb Hct MCV MCH MCHC RDW Std Deviation Plt Count MPV Immature Gran % (Auto) Neut % (Auto) Lymph % (Auto) [place] % (Auto) Eos % (Auto) Baso % (Auto) Immature Gran # (Auto) Neut # (Auto) Lymph # (Auto) [place] # (Auto) Eos # (Auto) Baso # (Auto) Segmented Neutrophils Lymphocytes Monocytes Specimen Type Sample Site pH pCO2 pO2 HCO3 Base Excess Oxyhemoglobin ABG O2 Sat (Calculated) ABG O2 Saturation ABG Carboxyhemoglobin ABG Methemoglobin Scott Test A-a O2 Difference Total Hemoglobin Lactate Blood Gas Modality Spontaneous Rate FiO2 % Tidal Volume PEEP Sodium 176 H* D 175 H* Potassium 3.1 L D 2.7 L Chloride > 140 H 143 H Carbon Dioxide 24 L 23 L Anion Gap Not Reportable 9 BUN 11 D 11 Creatinine 1.0 0.9 Estimated GFR/1.73 m2 > 60 > 60 BUN/Creatinine Ratio 11 12 Glucose 132 H 261 H D POC Glucose Calculated Osmolality 348 353 Calcium 9.2 9.0 Total Bilirubin 0.53 AST 12 ALT 25 Alkaline Phosphatase 75 Total Protein 7.5 Albumin 2.7 L Globulin 4.8 Albumin/Globulin Ratio 0.6 Urine Opiates Screen Ur Oxycodone Screen Urine Methadone Screen U Propoxyphene Qual Ur Barbituates Screen Ur Tricyclics Screen Ur Phencyclidine Scrn Ur Amphetamines Screen U Methamphetamines Scrn U Benzodiazepines Scrn Urine Cocaine Screen U Cannabinoids Screen ASSESSMENT/PLAN: 1. Acute respiratory failure, hypoxemic. Will continue mechanical ventilation. Will titrate and monitor patient responses per protocol. 2. Bibasilar pneumonia. Continue antibiotics as prescribed. 3. Hypokalemia. He received potassium. 4. Illicit polydrug user. 5. Encephalopathy. Neurology following. 6 Continue gastrointestinal prophylaxis with Protonix. 7. Sepsis- On pressors. Will continue to monitor and titrate per patient responses per protocol. 8. Clinical brain -with poor prognosis 9 Continue DVT prophylaxis with SCD's
[2019-08-29 21:07] LABS: BUN 11 mg/dL (8-22); CALCIUM 9.3 mg/dL (8.8-10.2); CHLORIDE > 140 mmol/L (98-107); COSMO 357; CREATININE 1.3 mg/dL (0.7-1.2); ESTIMATED GFR 59; GLUCOSE 159 mg/dL (70-104); POTASSIUM 2.7 mmol/L (3.5-5.1); SODIUM 178 mmol/L (136-145); TCO2 24 mmol/L (25-35)
[2019-08-29] MEDS ORDERED: NS IV ONE (21:35)
[2019-08-29] MEDS ORDERED: DDAVP IV ONE (21:35)
[2019-08-29] MEDS: DDAVP IV SCH (22:13)
[2019-08-29] MEDS: D5W 1,000 ML IV SCH (23:00)
[2019-08-30] MEDS: VANCOMYCIN 1,800 MG in NS 250 ML IV SCH (01:26)
[2019-08-30] MEDS: MAXIPIME 2 GM/NS 2 GM/100 ML IVPB IV SCH ×2 (01:26→13:13)
[2019-08-30] MEDS: D5W 1,000 ML IV SCH ×6 (03:47→18:01)
[2019-08-30] MEDS: LEVOPHED 8 MG in D5 1/2 NS 250 ML IV SCH ×2 (03:49→15:47)
[2019-08-30] MEDS: FLAGYL 500 MG/NS 500 MG/100 ML IVPB IV SCH ×4 (04:13→22:49)
[2019-08-30 04:38] LABS: ALLEN TEST YES; BE 0.7 mmoll (-3.0-3.0); BLOOD TYPE ARTERIAL; HCO3-(ACT) 25.4 mmoll (20.0-26.0); METHB 1.2 % (0.0-1.5); O2(CT) 19.1 mL/dL (15.0-23.0); O2HB 96.5 % (95.0-99.0); PCO2(98.6) 40 mmHg (35-45); PO2(98.6) 111 mmHg (60-100); SAMPLE BLOOD; SAO2 99.4 % (95.0-100.0); SRATE 14 BPM; TVOL 550 mL; pH(98.6) 7.41 (7.35-7.45)
[2019-08-30 04:39] LABS: MODALITY VENTILATOR
[2019-08-30] MEDS: DUONEB (A & A) INH SCH ×3 (05:08→11:30)
[2019-08-30] MEDS ORDERED: LOVENOX SUBQ SCH (06:00)
[2019-08-30 07:04] LABS: BUN 12 mg/dL (8-22); CALCIUM 8.9 mg/dL (8.8-10.2); CHLORIDE > 140 mmol/L (98-107); COSMO 346; CREATININE 1.5 mg/dL (0.7-1.2); ESTIMATED GFR 50; GLUCOSE 128 mg/dL (70-104); POTASSIUM 2.6 mmol/L (3.5-5.1); TCO2 23 mmol/L (25-35)
[2019-08-30 07:05] LABS: SODIUM 175 mmol/L (136-145)
[2019-08-30 07:12] LABS: BASO# 0.02 X1000 (0.0-0.2); BASO% 0.1 % (0.0-0.8); EOS# 0.07 X1000 (0.0-0.7); EOS% 0.3 % (0.0-10.0); HEMATOCRIT 41.9 % (42.0-52.0); HEMOGLOBIN 13.5 g/dL (14.0-18.0); IMM GRAN# 0.12 X1000 (0.0-0.04); IMM GRAN% 0.5 % (0.0-0.5); LYMPH# 2.22 X1000 (1.2-3.4); LYMPH% 10.2 % (20.5-51.1); MCH 30.9 PG (27-31); MCHC 32.2 g/dL (33-37); MCV 95.9 FL (81-99); MONO# 1.46 X1000 (0.11-0.59); MONO% 6.7 % (1.7-9.3); MPV 10.5 FL (7.4-10.4); NEUT# 17.95 X1000 (1.4-6.5); NEUT% 82.2 % (42.2-75.2); PLT 206 X1000 (130-400); RBC 4.37 XMIL (4.7-6.1); RDW 15.3 % (11.5-14.5); WBC 21.84 X1000 (4.8-10.8)
--- NOTE | 2019-08-30 08:22 | Diag Imaging Result Doc PS360 ---
EXAM: CHEST-1 VIEW INDICATION: SOB TECHNIQUE: 2 views COMPARISON: 08/29/2019 FINDINGS: Support tubes and lines are in stable positions. Mild right basilar consolidation is essentially stable. Mild basilar atelectasis and/or infiltrate is essentially stable. No new consolidation is identified. Cardiac silhouette is stable. IMPRESSION: Stable chest. Electronically signed by Callum Gallegos 08/30/2019 8:20 AM
[2019-08-30 08:54] LABS: BANDS 4 % (0-1); LYMPHS 14 % (21-51); SEGS 82 % (42-75)
[2019-08-30] MEDS: PROTONIX IV SCH (09:00)
[2019-08-30] MEDS: DDAVP IV SCH ×2 (10:09→20:01)
[2019-08-30] MEDS: POTASSIUM CHLORIDE 20 MEQ/SWI 20 MEQ/100 ML IVPB IV SCH ×2 (10:24→11:31)
[2019-08-30] MEDS ORDERED: D5W 1,000 ML IV SCH (13:30)
[2019-08-30 13:58] LABS: UR CREAT RANDOM 204.7 mg/dL (14-26)
--- NOTE | 2019-08-30 14:28 | PROGRESS NOTE ---
DATE: 08/30/2019 SUBJECTIVE: The patient is unresponsive and has been unresponsive. He is not on any sedation. OBJECTIVE: Vital Signs: Blood pressure is 105/78, heart rate 68, respiratory rate 15, temp has been afebrile. Cardiovascular: Regular rate and rhythm. Pulmonary: Bilateral breath sounds. Clear to auscultation. GI: Soft, nontender, nondistended. Bowel sounds are positive. LABORATORY DATA: White count is 21, hemoglobin and hematocrit 13 and 41, platelets 206,000. ABG: PH 7.41, pCO2 of 40, PaO2 of 111. Sodium is still high at 171 (that is somewhat of an improvement), potassium 2.6, creatinine is up to 1.5, and this is despite multiple boluses of fluid. His urine osmolality actually is high. PROBLEM LIST: 1. Encephalopathy consistent with brain . Prognosis is not doing well. There has been no clinical improvement. Dr. Laguerre will re-evaluate him to tomorrow and discuss with the family. I have updated the mother daily over the weekend. I do not think a CT angiogram is going to be a possibility because he is still on pressors and now he has got renal failure, but we will continue to follow. 2. Acute respiratory failure. The patient is apneic. We had done an apnea test, respiratory did today, 5 episodes 20 seconds and he had no response. 3. Aspiration-type pneumonia. He is on cefepime and Flagyl. I am going to stop the vancomycin because of potential nephrotoxicity and his vancomycin level was high. 4. Hypernatremia. He has put out 11.8 liters of urine reportedly, and then 7500 today, so he is hypernatremic. 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 We have been giving him D5 and free water flushes, and he has had minimal improvement. We went ahead and started desmopressin. I have consulted Nephrology. 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 We will continue D5. I think it is likely related to his central initial either anoxic or toxic encephalopathy related to his drug overdose. 5. Acute kidney injury. Will continue fluids. He is on just D5 right now because we really have no other option. His sodium is so elevated, and we will get him free water flushes. 6. Disposition. Prognosis is poor. I have discussed this with the family. We are going to re- evaluate tomorrow after Dr. Laguerre reassesses him, and will follow. cc: Ari Gupta MD
[2019-08-30] MEDS ORDERED: VANCOMYCIN 1 GM/NS 1 GM/250 ML IVPB IV SCH (14:30)
--- NOTE | 2019-08-30 14:30 | PROGRESS NOTE ---
DATE: 08/30/2019 SUBJECTIVE: The patient has no major complaints. OBJECTIVE: Vital Signs: Blood pressure is 105/78, heart rate 68, respiratory rate 15, temperature is 99.3 degrees. Cardiovascular: Regular rate and rhythm. Pulmonary: Bilateral breath sounds. Clear to auscultation. PLAN: I have discussed with the patient's mother and sister about the poor prognosis. She said he would not want to be resuscitated in this situation, so we will not put him through CPR or ACLS protocol. We are not going to deescalate his care (he is on vasopressors) until we have evaluation tomorrow with Dr. Laguerre and have had a chance to discuss his opinion with the family. Continue to follow. cc: rAi Gupta MD
--- NOTE | 2019-08-30 15:29 | NEPHROLOGY CONSULTATION ---
DATE: 08/30/2019 REASON FOR ADMISSION: Was found unresponsive. REASON FOR CONSULTATION: Hypernatremia, acute kidney injury. CONSULTING PHYSICIAN: Dr. Gupta. HISTORY OF PRESENT ILLNESS: This is a 48-year-old gentleman who was found at a friend's house who was found unresponsive, brought into the emergency room, and required intubation. He was noted there to already have constriction of his left pupil and decreased reactivity to the right. He had imaging to the head and was noted to have cerebral edema. Patient was noted to have a fever of unknown origin and so was unable to transfer to Neurology. His urine drug test was positive for opioids, amphetamine, methamphetamine, and cannabinoids. The patient over the course of the hospitalization has developed hypernatremia. He has been declared clinically brain secondary to neuro evaluation. The family has been informed of this. They are still continuing with aggressive therapy. When I see the patient, he is not sedated and completely unresponsive. PAST MEDICAL HISTORY: Unknown. SURGICAL HISTORY: Unknown. ALLERGIES: Unknown. HOME MEDICATIONS: Unknown. CURRENT MEDICATIONS: Acetaminophen, Maxipime, DDAVP, D5W, Lovenox, Flagyl, norepinephrine, ondansetron, pantoprazole. REVIEW OF SYSTEMS: Unobtainable. FAMILY HISTORY: Unknown. SOCIAL HISTORY: Positive for multiple drugs. PHYSICAL EXAMINATION: Vital Signs: Temperature 99.3 degrees, pulse 70, respiratory rate 15, blood pressure 97/57. Intake 7.7 L. Output 8.3 L. General: This is a critically ill-appearing gentleman who is unresponsive, currently mechanically ventilated. HEENT: Normocephalic, atraumatic. Orally intubated. Neck: Supple. Cardiovascular: Currently regular. Pulmonary: Decreased breath sounds. Abdomen: Hypoactive bowel sounds. : Escalante catheter with a significant amount of yellow urine. Extremities: No clubbing, cyanosis, edema. Integumentary: Skin is warm and dry. Neurologic: Unresponsive. LAB DATA: WBC of 21.8, hemoglobin 13.5. Sodium 175, potassium 2.6, chloride greater than 140, CO2 of 23, BUN 12, creatinine 1.5. ASSESSMENT AND PLAN: 1. Acute kidney injury along with clinical brain and now with hypernatremia. Patient was started on desmopressin yesterday. His intake and output have been close to balance. He has D5 that he is using at 200. He also has free water through his NG tube. 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 We will continue current therapeutic treatment. Family has been updated by primary. They have since this morning decided to make him a DNR level 2. We will continue with current treatment plan, but will not escalate further treatment. 2. Acute kidney injury secondary to above. He has no absolute indications for intervention otherwise today. Again, we will check his labs in the morning and discuss with the family regarding wishes for his treatment. Dictated by MELINA Caldreon for Nestor Allen MD cc: Nestor Allen MD
--- NOTE | 2019-08-30 15:58 | Diag Imaging Result Doc PS360 ---
EXAM: US RENAL 2 (RETROPER) COMPLETE INDICATION: qiana/arf TECHNIQUE: COMPARISON: None. FINDINGS: The kidneys are grossly normal in echotexture with no discrete renal mass or hydronephrosis. The right kidney measures 14.4 cm and the left kidney measures 14.2 cm in the greatest longitudinal axes. Right renal cortex measures 1.6 cm and the left renal cortex measures 1.2 cm in thickness. There is a tiny 5 mm echogenic focus that appears to have posterior acoustic shadowing in the right kidney that probably represents an intrarenal stone. There is a Escalante catheter in the urinary bladder and the bladder is completely nondistended. IMPRESSION: Possible tiny nonobstructing intrarenal stone on the right. Unremarkable renal ultrasound, otherwise. Electronically signed by Callum Gallegos 08/30/2019 3:56 PM
--- NOTE | 2019-08-30 19:37 | PROVIDER PROGRESS NOTE ---
Progress Note Dr. Echeverria Progress Note/Pulmonary and or critical care Subjective: he patient is lying in bed sedated on mechanical ventilation. No change from yesterday. Objective: PHYSICAL EXAMINATION: VITAL SIGNS: Blood pressure 105/78, respiratory rate 18, pulse rate 69, temperature 99.3. On mechanical ventilation, 02 saturation is 98%. GENERAL: Unresponsive on mechanical ventilation. HEENT: He is endotracheally intubated. Pupils are nonreactive/fixed NECK: Trachea midline. CARDIOVASCULAR: S1 and S2 auscultated. Regular rate and rhythm. No rubs, gallops or murmurs. No lower extremity edema. PULMONARY: Clear to auscultation. GI: Soft. Decreased bowel sounds in all 4 quadrants. EXTREMITIES: Wasted. NEUROLOGIC: No response to pain SKIN: Warm, dry and intact. Dr. Echeverria did assessment and management. MELINA Leon did scribing only. LABS/ Rasiology Laboratory Results 08/29/19 08/30/19 08/30/19 19:50 04:00 04:00 WBC 21.84 H RBC 4.37 L Hgb 13.5 L Hct 41.9 L MCV 95.9 MCH 30.9 MCHC 32.2 L RDW Std Deviation 15.3 H Plt Count 206 MPV 10.5 H Immature Gran % (Auto) 0.5 Neut % (Auto) 82.2 H Lymph % (Auto) 10.2 L [place] % (Auto) 6.7 Eos % (Auto) 0.3 Baso % (Auto) 0.1 Immature Gran # (Auto) 0.12 H Neut # (Auto) 17.95 H Lymph # (Auto) 2.22 [place] # (Auto) 1.46 H Eos # (Auto) 0.07 Baso # (Auto) 0.02 Segmented Neutrophils 82 H Band Neutrophils 4 H Lymphocytes 14 L Specimen Type Sample Site pH pCO2 pO2 HCO3 Base Excess Oxyhemoglobin ABG O2 Sat (Calculated) ABG O2 Saturation ABG Carboxyhemoglobin ABG Methemoglobin Scott Test A-a O2 Difference Total Hemoglobin Lactate Blood Gas Modality Vent Mode Spontaneous Rate FiO2 % Tidal Volume PEEP Sodium 178 H* 175 H* Potassium 2.7 L 2.6 L Chloride > 140 H > 140 H Carbon Dioxide 24 L 23 L BUN 11 12 Creatinine 1.3 H 1.5 H Estimated GFR/1.73 m2 59 50 BUN/Creatinine Ratio 8 8 Glucose 159 H 128 H POC Glucose Calculated Osmolality 357 346 Calcium 9.3 8.9 Urine Osmolality Ur Random Creatinine U Random Total Protein Ur Random Sodium Ur Random Urea Nitrogn Random Vancomycin 08/30/19 08/30/19 08/30/19 04:28 05:48 10:15 WBC RBC Hgb Hct MCV MCH MCHC RDW Std Deviation Plt Count MPV Immature Gran % (Auto) Neut % (Auto) Lymph % (Auto) [place] % (Auto) Eos % (Auto) Baso % (Auto) Immature Gran # (Auto) Neut # (Auto) Lymph # (Auto) [place] # (Auto) Eos # (Auto) Baso # (Auto) Segmented Neutrophils Band Neutrophils Lymphocytes Specimen Type ARTERIAL Sample Site R RADIAL pH 7.41 pCO2 40 pO2 111 H HCO3 25.4 Base Excess 0.7 Oxyhemoglobin 96.5 ABG O2 Sat (Calculated) 19.1 ABG O2 Saturation 99.4 ABG Carboxyhemoglobin 1.70 ABG Methemoglobin 1.2 Scott Test YES A-a O2 Difference 196.0 Total Hemoglobin 14.0 Lactate 1.80 Blood Gas Modality VENTILATOR Vent Mode A/C Spontaneous Rate 14 FiO2 % 50.0 Tidal Volume 550 PEEP 5.0 Sodium 171 H* Potassium Chloride Carbon Dioxide BUN Creatinine Estimated GFR/1.73 m2 BUN/Creatinine Ratio Glucose POC Glucose 110 H Calculated Osmolality Calcium Urine Osmolality Ur Random Creatinine U Random Total Protein Ur Random Sodium Ur Random Urea Nitrogn Random Vancomycin 08/30/19 08/30/19 08/30/19 10:15 10:42 13:29 WBC RBC Hgb Hct MCV MCH MCHC RDW Std Deviation Plt Count MPV Immature Gran % (Auto) Neut % (Auto) Lymph % (Auto) [place] % (Auto) Eos % (Auto) Baso % (Auto) Immature Gran # (Auto) Neut # (Auto) Lymph # (Auto) [place] # (Auto) Eos # (Auto) Baso # (Auto) Segmented Neutrophils Band Neutrophils Lymphocytes Specimen Type Sample Site pH pCO2 pO2 HCO3 Base Excess Oxyhemoglobin ABG O2 Sat (Calculated) ABG O2 Saturation ABG Carboxyhemoglobin ABG Methemoglobin Scott Test A-a O2 Difference Total Hemoglobin Lactate Blood Gas Modality Vent Mode Spontaneous Rate FiO2 % Tidal Volume PEEP Sodium Potassium Chloride Carbon Dioxide BUN Creatinine Estimated GFR/1.73 m2 BUN/Creatinine Ratio Glucose POC Glucose 127 H Calculated Osmolality Calcium Urine Osmolality 539 Ur Random Creatinine U Random Total Protein Ur Random Sodium Ur Random Urea Nitrogn Random Vancomycin 23.50 08/30/19 08/30/19 08/30/19 13:29 13:29 14:27 WBC RBC Hgb Hct MCV MCH MCHC RDW Std Deviation Plt Count MPV Immature Gran % (Auto) Neut % (Auto) Lymph % (Auto) [place] % (Auto) Eos % (Auto) Baso % (Auto) Immature Gran # (Auto) Neut # (Auto) Lymph # (Auto) [place] # (Auto) Eos # (Auto) Baso # (Auto) Segmented Neutrophils Band Neutrophils Lymphocytes Specimen Type Sample Site pH pCO2 pO2 HCO3 Base Excess Oxyhemoglobin ABG O2 Sat (Calculated) ABG O2 Saturation ABG Carboxyhemoglobin ABG Methemoglobin Scott Test A-a O2 Difference Total Hemoglobin Lactate Blood Gas Modality Vent Mode Spontaneous Rate FiO2 % Tidal Volume PEEP Sodium 164 H* Potassium Chloride Carbon Dioxide BUN Creatinine Estimated GFR/1.73 m2 BUN/Creatinine Ratio Glucose POC Glucose Calculated Osmolality Calcium Urine Osmolality Ur Random Creatinine 204.7 H U Random Total Protein 169.0 Ur Random Sodium 61 Ur Random Urea Nitrogn 413 Random Vancomycin 08/30/19 08/30/19 15:25 17:35 WBC RBC Hgb Hct MCV MCH MCHC RDW Std Deviation Plt Count MPV Immature Gran % (Auto) Neut % (Auto) Lymph % (Auto) [place] % (Auto) Eos % (Auto) Baso % (Auto) Immature Gran # (Auto) Neut # (Auto) Lymph # (Auto) [place] # (Auto) Eos # (Auto) Baso # (Auto) Segmented Neutrophils Band Neutrophils Lymphocytes Specimen Type Sample Site pH pCO2 pO2 HCO3 Base Excess Oxyhemoglobin ABG O2 Sat (Calculated) ABG O2 Saturation ABG Carboxyhemoglobin ABG Methemoglobin Scott Test A-a O2 Difference Total Hemoglobin Lactate Blood Gas Modality Vent Mode Spontaneous Rate FiO2 % Tidal Volume PEEP Sodium 165 H* Potassium Chloride Carbon Dioxide BUN Creatinine Estimated GFR/1.73 m2 BUN/Creatinine Ratio Glucose POC Glucose 74 Calculated Osmolality Calcium Urine Osmolality Ur Random Creatinine U Random Total Protein Ur Random Sodium Ur Random Urea Nitrogn Random Vancomycin ASSESSMENT/PLAN: 1. Acute respiratory failure, hypoxemic. Will continue mechanical ventilation. Will titrate and monitor patient responses per protocol. 2. Bibasilar pneumonia. Continue antibiotics as prescribed. 3. Hypokalemia. He received potassium. 4. Illicit polydrug user. 5. Encephalopathy. Neurology following. 6 Continue gastrointestinal prophylaxis with Protonix. 7. Sepsis- On pressors. Will continue to monitor and titrate per patient responses per protocol. 8. Clinical brain -with poor prognosis. Awaiting to speak to mother. 9 Continue DVT prophylaxis with SCD's 10. HyperNatremia- Starting D5W 11. Receiving potassium
[2019-08-31] MEDS: D5W 1,000 ML IV SCH ×5 (00:14→19:10)
[2019-08-31] MEDS: MAXIPIME 2 GM/NS 2 GM/100 ML IVPB IV SCH ×2 (02:00→14:23)
[2019-08-31] MEDS: LEVOPHED 8 MG in D5 1/2 NS 250 ML IV SCH ×2 (04:08→14:26)
[2019-08-31] MEDS: LACRI-LUBE OPH OINT BOTH EYES PRN (04:09)
[2019-08-31 04:59] LABS: ALLEN TEST YES; BE 0.3 mmoll (-3.0-3.0); BLOOD TYPE ARTERIAL; HCO3-(ACT) 25.1 mmoll (20.0-26.0); METHB 1.1 % (0.0-1.5); O2(CT) 18.9 mL/dL (15.0-23.0); O2HB 96.8 % (95.0-99.0); PO2(98.6) 156 mmHg (60-100); SAMPLE BLOOD; SAO2 99.5 % (95.0-100.0); SRATE 14 BPM; THB 13.7 g/dL (11.5-17.4); TVOL 550 mL; pH(98.6) 7.32 (7.35-7.45)
[2019-08-31 05:01] LABS: MODALITY VENTILATOR; PCO2(98.6) 53 mmHg (35-45)
[2019-08-31] MEDS: LOVENOX SUBQ SCH (06:17)
[2019-08-31] MEDS: FLAGYL 500 MG/NS 500 MG/100 ML IVPB IV SCH ×3 (06:19→17:44)
[2019-08-31 06:24] LABS: BASO# 0.01 X1000 (0.0-0.2); BASO% 0.1 % (0.0-0.8); EOS# 0.05 X1000 (0.0-0.7); EOS% 0.3 % (0.0-10.0); HEMATOCRIT 39.9 % (42.0-52.0); HEMOGLOBIN 13.1 g/dL (14.0-18.0); IMM GRAN% 0.6 % (0.0-0.5); LYMPH# 1.74 X1000 (1.2-3.4); LYMPH% 9.8 % (20.5-51.1); MCHC 32.8 g/dL (33-37); MCV 94.5 FL (81-99); MONO# 1.46 X1000 (0.11-0.59); MONO% 8.2 % (1.7-9.3); MPV 10.4 FL (7.4-10.4); NEUT# 14.35 X1000 (1.4-6.5); PLT 154 X1000 (130-400); RBC 4.22 XMIL (4.7-6.1); RDW 15.8 % (11.5-14.5); WBC 17.71 X1000 (4.8-10.8)
--- NOTE | 2019-08-31 06:35 | Diag Imaging Result Doc PS360 ---
CHEST-1 VIEW - 08/31/2019 INDICATION: SOB COMPARISON: 08/30/2019 FINDINGS: Support tubes are stable and in good position. There has been improvement in the bilateral basilar infiltrates. No new infiltrates. Heart size is normal. No large pleural effusion. IMPRESSION: Improvement in the faint bibasilar infiltrates. Electronically signed by Brett Noyola 08/31/2019 6:33 AM
[2019-08-31 07:12] LABS: CALCIUM 7.6 mg/dL (8.8-10.2); CREATININE 1.5 mg/dL (0.7-1.2); POTASSIUM 2.9 mmol/L (3.5-5.1)
[2019-08-31] MEDS ORDERED: D5W 1,000 ML IV SCH (08:00)
[2019-08-31 10:44] LABS: PHOSPHORUS 3.5 mg/dL (2.7-4.5); PREALBUMIN < 3.0 mg/dL (20-40)
--- NOTE | 2019-08-31 10:51 | NEPHROLOGY PROGRESS NOTE ---
DATE: 08/31/2019 SUBJECTIVE: Patient is lying in bed, intubated without sedation and he is unresponsive. No family at bedside currently. OBJECTIVE: Vital signs: Temperature 96.8 degrees, pulse 75, respirations 19, blood pressure 131/88, O2 saturation 97% on 50% FiO2 mechanical ventilation. General: Ill- appearing white male, unresponsive, who is currently mechanical ventilated. HEENT: Normocephalic, atraumatic. Endotracheal tube in place. Moist mucous membranes. Skin: Warm and dry. Neck: Supple. No JVD observed. Cardiovascular: Regular rate and rhythm. No murmur or gallop noted. Respiratory: Lungs clear to auscultation anteriorly. Abdomen: Soft, nontender, nondistended. Hypoactive bowel sounds noted. Genitourinary: Not inspected, Escalante catheter in place. Extremities: No clubbing or edema noted. Neurological: Unresponsive. LABORATORY DATA: WBC 17.71, hemoglobin 13.1, hematocrit 39.9, platelet count 154,000. Sodium 162, potassium 2.9, chloride 127, carbon dioxide 25, BUN 15, creatinine 1.5, calcium 7.6. Intake 7208, output 925. IMPRESSION: 1. Acute kidney injury along with clinical brain and hypernatremia. Diabetes Insipidus. The patient remains on desmopressin. His output has decreased dramatically over the last 24 hours. He remains on D5W at 200 mL an hour. His sodium today is 162. His creatinine has remained stable at 1.5. Continue current plan. 2. Blood pressure is stable with vasopressor support, 3. Fluid volume.Euvolemic on exam. 4. Electrolytes and acid-base balance. These are acceptable. 5. Nutrition. Defer to primary. 6. Medication review. Lovenox started today. 7. Disposition. Staff has made me aware that he may be changing to palliative care pending Physician discussion with family. I would like to thank you for allowing us to follow this patient. Dictated by MELINA Espino for Nestor Allen MD Face to face encounter, data reviewed, discussed with Eloy Marinelli on 08/31/19. I agree with the above assessment and plan of care. cc: Nestor Allen MD [facility]
[2019-08-31] MEDS: DDAVP IV SCH ×2 (11:01→20:55)
[2019-08-31] MEDS: PROTONIX IV SCH (11:01)
[2019-08-31] MEDS: POTASSIUM CHLORIDE 20 MEQ/SWI 20 MEQ/100 ML IVPB IV SCH ×2 (12:25→14:23)
--- NOTE | 2019-08-31 13:54 | PROGRESS NOTE ---
DATE: 08/31/2019 SUBJECTIVE: Patient has no major complaints. OBJECTIVE: Vital Signs: Blood pressure 102/66, heart rate of 72, respiratory rate of 14, temperature was afebrile 96.8. Subjective: Patient is unresponsive. Cardiovascular: Regular rate and rhythm. Pulmonary: Bilateral breath sounds. Clear to auscultate. GI: Soft, nontender. Good bowel sounds. LABS: White count 17, hemoglobin and hematocrit 13 and 30, platelet 105, pO2 7.32, pCO2 53, PaO2 is 156. Sodium is 162, potassium is 2.9, creatinine of 1.9. PROBLEM LIST: 1. Brain consistent with encephalopathy. We will likely have to do some sort of confirmation test. I will discuss with Dr. Laguerre. Family understands poor prognosis. Their concern at this is that there may be foul play involved, and went and involved the police. We discussed at length that we are going to have to make a decision about taking him off the ventilator. This is not a persistent vegetative state. 2. Aspiration pneumonia. Continue cefepime and Flagyl. 3. Diabetes insipidus. He is hypernatremic, which is improving with D 5. We will continue to follow. 4. Acute kidney injury seems to be doing okay. We will continue to monitor closely. This is a Covid-19 case possibly; we are waiting on confirmation test, but I do not think that is going to change other things being done at this point. cc: Ari Gupta MD
--- NOTE | 2019-08-31 14:57 | ECHO REPORT ---
ORDER DATE: 08/30/2019 INTERPRETING PHYSICIAN: Dr. Eren Barrett ECHOCARDIOGRAPHIC MEASUREMENTS: 1. Interventricular septum: 0.8 cm. 2. Posterior wall: 0.8 cm. 3. Diastolic diameter: 5.6 cm. 4. Left atrium: 4.0 cm. 5. Aortic root: 3.5 cm. SUMMARY OF THE 2-DIMENSIONAL IMAGIN. Aortic valve leaflets are trileaflet. 2. Pulmonic valve was normal. 3. Mitral valve was normal. 4. Tricuspid valve was normal. 5. Technically suboptimal study. Poor acoustic window. 6. There is mild mitral regurgitation. 7. Mild tricuspid regurgitation. Peak velocity across the tricuspid valve was 2.7 m/sec. 8. Pulmonary artery systolic pressure of 39 mmHg. 9. Peak velocity across the aortic valve less than 2 m/sec. There is no aortic stenosis or regurgitation. 10. Normal left ventricular cavity size. Estimated ejection fraction of 60%. 11. There is no pericardial effusion. cc: MD Ari Duke MD
--- NOTE | 2019-08-31 15:23 | NEUROLOGY PROGRESS NOTE ---
DATE: 08/31/2019 Since I saw Mr. Thomas on Saturday, he has been identified. There has been history taken from family. There has not been any significant change in his clinical appearance. There has not been any history provided that would make a diagnosis of brain difficult or problematic. He had initially presented with multiple positive drug toxicity but observation over more than 72 hours is sufficient On exam now, there is no corneal reflex. Pupils are fixed, dilated, nonreactive to bright light. There is no lateral eye movement with passive head turning. There is no respiratory effort. There is no response to noxious stimulation over the forehead and over each limb. He is not hypothermic. IMPRESSION: No clinical evidence of brain activity. We can now make determination of brain . I do not think ancillary testing is required. I attempted to speak with his mother on several occasions through the day but missed her each time. ADDENDUM: I did later talk with his mother and made it clear to her that he has . cc: Lindsay Laguerre III, MD MTDD
--- NOTE | 2019-08-31 17:57 | PROVIDER PROGRESS NOTE ---
Progress Note Dr. Echeverria Progress Note/Pulmonary and or critical care Subjective: The patient remains intubated. Patients mother at the bedside. Input was appreciated from Dr. Gupta and other teams on the case. Objective: Vital Signs: (No fever in last 24 hours), CO 75, RR 19, BP 131/88 and SaO2 97% on AC 14, 50%, 550, 5. I/O: +6283 ml. Physical Examination: General: Intubated without sedation. unresponsive. HEENT: Normocephalic. Atraumatic. Trachea midline. ET tube in place. Pupils nonreactive. Chest: Mechanically ventilated. Symmetrical excursion. Clear to auscultation bilaterally. CVS: S1 and S2 appreciated. Abdomen: Soft. Non-distended. Hypoactive bowel sounds noted in all 4 quadrants. Extremities: Wasted. Neuro: Nonresponsive to pain stimuli. Labs and Radiology: Laboratory Results 08/30/19 08/30/19 08/30/19 15:25 20:18 20:30 WBC RBC Hgb Hct MCV MCH MCHC RDW Std Deviation Plt Count MPV Immature Gran % (Auto) Neut % (Auto) Lymph % (Auto) [place] % (Auto) Eos % (Auto) Baso % (Auto) Immature Gran # (Auto) Neut # (Auto) Lymph # (Auto) [place] # (Auto) Eos # (Auto) Baso # (Auto) Specimen Type Sample Site pH pCO2 pO2 HCO3 Base Excess Oxyhemoglobin ABG O2 Sat (Calculated) ABG O2 Saturation ABG Carboxyhemoglobin ABG Methemoglobin Scott Test A-a O2 Difference Total Hemoglobin Lactate Blood Gas Modality Vent Mode Spontaneous Rate FiO2 % Tidal Volume PEEP Sodium 165 H* 166 H* Potassium Chloride Carbon Dioxide Anion Gap BUN Creatinine Estimated GFR/1.73 m2 BUN/Creatinine Ratio Glucose POC Glucose 77 Calculated Osmolality Calcium Phosphorus Prealbumin 08/31/19 08/31/19 08/31/19 04:49 05:00 05:00 WBC 17.71 H RBC 4.22 L Hgb 13.1 L Hct 39.9 L MCV 94.5 MCH 31.0 MCHC 32.8 L RDW Std Deviation 15.8 H Plt Count 154 MPV 10.4 Immature Gran % (Auto) 0.6 H Neut % (Auto) 81.0 H Lymph % (Auto) 9.8 L [place] % (Auto) 8.2 Eos % (Auto) 0.3 Baso % (Auto) 0.1 Immature Gran # (Auto) 0.10 H Neut # (Auto) 14.35 H Lymph # (Auto) 1.74 [place] # (Auto) 1.46 H Eos # (Auto) 0.05 Baso # (Auto) 0.01 Specimen Type ARTERIAL Sample Site R RADIAL pH 7.32 L pCO2 53 H* pO2 156 H HCO3 25.1 Base Excess 0.3 Oxyhemoglobin 96.8 ABG O2 Sat (Calculated) 18.9 ABG O2 Saturation 99.5 ABG Carboxyhemoglobin 1.60 ABG Methemoglobin 1.1 Scott Test YES A-a O2 Difference 134.0 Total Hemoglobin 13.7 Lactate 1.40 Blood Gas Modality VENTILATOR Vent Mode A/C Spontaneous Rate 14 FiO2 % 50.0 Tidal Volume 550 PEEP 5.0 Sodium 162 H* Potassium 2.9 L Chloride 127 H Carbon Dioxide 25 Anion Gap 10 BUN 15 Creatinine 1.5 H Estimated GFR/1.73 m2 50 BUN/Creatinine Ratio 10 Glucose 143 H POC Glucose Calculated Osmolality 324 Calcium 7.6 L Phosphorus Prealbumin 08/31/19 08/31/19 08/31/19 05:00 05:24 11:12 WBC RBC Hgb Hct MCV MCH MCHC RDW Std Deviation Plt Count MPV Immature Gran % (Auto) Neut % (Auto) Lymph % (Auto) [place] % (Auto) Eos % (Auto) Baso % (Auto) Immature Gran # (Auto) Neut # (Auto) Lymph # (Auto) [place] # (Auto) Eos # (Auto) Baso # (Auto) Specimen Type Sample Site pH pCO2 pO2 HCO3 Base Excess Oxyhemoglobin ABG O2 Sat (Calculated) ABG O2 Saturation ABG Carboxyhemoglobin ABG Methemoglobin Scott Test A-a O2 Difference Total Hemoglobin Lactate Blood Gas Modality Vent Mode Spontaneous Rate FiO2 % Tidal Volume PEEP Sodium Potassium Chloride Carbon Dioxide Anion Gap BUN Creatinine Estimated GFR/1.73 m2 BUN/Creatinine Ratio Glucose POC Glucose 124 H D 130 H Calculated Osmolality Calcium Phosphorus 3.5 Prealbumin < 3.0 L 08/31/19 17:42 WBC RBC Hgb Hct MCV MCH MCHC RDW Std Deviation Plt Count MPV Immature Gran % (Auto) Neut % (Auto) Lymph % (Auto) [place] % (Auto) Eos % (Auto) Baso % (Auto) Immature Gran # (Auto) Neut # (Auto) Lymph # (Auto) [place] # (Auto) Eos # (Auto) Baso # (Auto) Specimen Type Sample Site pH pCO2 pO2 HCO3 Base Excess Oxyhemoglobin ABG O2 Sat (Calculated) ABG O2 Saturation ABG Carboxyhemoglobin ABG Methemoglobin Scott Test A-a O2 Difference Total Hemoglobin Lactate Blood Gas Modality Vent Mode Spontaneous Rate FiO2 % Tidal Volume PEEP Sodium Potassium Chloride Carbon Dioxide Anion Gap BUN Creatinine Estimated GFR/1.73 m2 BUN/Creatinine Ratio Glucose POC Glucose 100 Calculated Osmolality Calcium Phosphorus Prealbumin Assessment: Acute hypoxemic respiratory failure. Intubated on 08/28/19. Bibasilar pneumonia. CXR shows improvement in the faint bibasilar infiltrates. Sepsis and shock. Significant hypernatremia. Illicit polysubstance abuse. Encephalopathy with clinical brain . Acute kidney injury with hypokalemia, hypernatremia and hyperchloremia. Nephrology on board. DNR 2. Prognosis poor. Plan: We checked ventilation and titrated to the patients needs per clinical protocols. We will monitor patients response closely. We will follow up ABG and CXR daily. We titrated pressor (Levophed drip) to patients needs per clinical protocols. We will monitor patients response closely. Continue antibiotics, including Cefepime and Flagyl. Appropriate GI and DVT prophylaxis. We discuss patients condition and care plan to patients mother and all questions have been answered. We start Palliative Care Consultation. Total evaluation time in minutes: 33.
[2019-09-01] MEDS: FLAGYL 500 MG/NS 500 MG/100 ML IVPB IV SCH ×5 (00:43→23:44)
[2019-09-01] MEDS: D5W 1,000 ML IV SCH ×6 (00:43→23:44)
[2019-09-01] MEDS: MAXIPIME 2 GM/NS 2 GM/100 ML IVPB IV SCH ×2 (01:47→13:07)
[2019-09-01 04:38] LABS: ALLEN TEST YES; BE 1.4 mmoll (-3.0-3.0); BLOOD TYPE ARTERIAL; METHB 1.3 % (0.0-1.5); O2(CT) 20.2 mL/dL (15.0-23.0); O2HB 96.3 % (95.0-99.0); PO2(98.6) 175 mmHg (60-100); SAMPLE BLOOD; SAO2 99.7 % (95.0-100.0); SRATE 14 BPM; THB 14.7 g/dL (11.5-17.4); TVOL 550 mL; pH(98.6) 7.32 (7.35-7.45)
[2019-09-01 04:40] LABS: MODALITY VENTILATOR; PCO2(98.6) 56 mmHg (35-45)
[2019-09-01] MEDS: LOVENOX SUBQ SCH (05:17)
[2019-09-01 05:21] LABS: BASO# 0.02 X1000 (0.0-0.2); BASO% 0.1 % (0.0-0.8); EOS# 0.08 X1000 (0.0-0.7); EOS% 0.5 % (0.0-10.0); HEMATOCRIT 37.4 % (42.0-52.0); HEMOGLOBIN 12.2 g/dL (14.0-18.0); IMM GRAN# 0.04 X1000 (0.0-0.04); IMM GRAN% 0.3 % (0.0-0.5); MCH 30.7 PG (27-31); MCHC 32.6 g/dL (33-37); MONO# 1.07 X1000 (0.11-0.59); MONO% 7.1 % (1.7-9.3); MPV 10.8 FL (7.4-10.4); NEUT# 12.64 X1000 (1.4-6.5); PLT 117 X1000 (130-400); RBC 3.98 XMIL (4.7-6.1); RDW 15.6 % (11.5-14.5); WBC 15.05 X1000 (4.8-10.8)
[2019-09-01 06:00] LABS: AGAP 8; ALB/GLOB RATIO 0.6; ALBUMIN 2.2 g/dL (3.5-5.0); ALKALINE PHOSPHATASE 74 U/L (32-122); BUN 16 mg/dL (8-22); CALCIUM 7.3 mg/dL (8.8-10.2); CHLORIDE 109 mmol/L (98-107); COSMO 288; CREATININE 1.2 mg/dL (0.7-1.2); ESTIMATED GFR > 60; GLUCOSE 135 mg/dL (70-104); GOT 13 U/L (10-34); GPT 15 U/L (10-44); POTASSIUM 3.4 mmol/L (3.5-5.1); SODIUM 143 mmol/L (136-145); TCO2 26 mmol/L (25-35); TOTAL BILIRUBIN 0.86 mg/dL (0.20-1.00); TOTAL PROTEIN 5.9 g/dL (6.3-8.3)
--- NOTE | 2019-09-01 07:39 | Diag Imaging Result Doc PS360 ---
EXAM: CHEST-1 VIEW INDICATION: SOB TECHNIQUE: One view COMPARISON: 08/31/2019 FINDINGS: Support tubes and lines are in stable position. The very mild bibasilar infiltrates are approximately stable. No new consolidation is identified. Cardiac silhouette is stable. IMPRESSION: Stable chest. Electronically signed by Callum Gallegos 09/01/2019 7:36 AM
[2019-09-01 09:11] LABS: HIV ANTIBODY SCREEN SEE COMMENTS
[2019-09-01] MEDS: DDAVP IV SCH ×2 (10:27→22:19)
[2019-09-01] MEDS: PROTONIX IV SCH (10:27)
--- NOTE | 2019-09-01 10:54 | NEPHROLOGY PROGRESS NOTE ---
DATE: 09/01/2019 TIME SEEN: 0710. SUBJECTIVE: The patient lying in bed and orally intubated with no sedation. He has no pupillary response, unresponsive to tactile stimuli. OBJECTIVE: Vital signs: Temperature 97.3 degrees, pulse 66, respirations 16, blood pressure 101/64, O2 saturation 97% on 50% FiO2 mechanical ventilation. General: Ill- appearing white male lying in bed, in no acute distress. HEENT: Normocephalic, atraumatic. Nonreactive pupils. Mucous membranes moist. Orally intubated. Skin: Warm and clammy with cool extremities. Neck: Supple, JVD observed in semi-[place]endiola position. Cardiovascular: S1, S2. Regular rate and rhythm. Respiratory: Clear to auscultation bilaterally anteriorly. Abdomen: Soft, nontender, nondistended. Hypoactive bowel sounds noted. : Not inspected, Escalante in place. Extremities: No clubbing or edema. Neurological: No pupillary reflex, not responding to tactile stimuli. LABS: WBC 15.05, hemoglobin 12.2, hematocrit 37.4, platelet count 117,000. Sodium 143, potassium 3.4, chloride 109, carbon dioxide 26, BUN 16, creatinine 1.2. Intake 7132, output 1900. IMPRESSION AND PLAN: Acute kidney injury with clinical brain and hypernatremia. Patient's sodium is within normal limits today. His urine output is adequate. Neurology has spoken with patient's mother about no clinical evidence of brain activity and determination of brain . At this time, we will sign off. Thank you for allowing us to follow with this patient. Dictated by MELINA Espino for Nestor Allen MD Face to face encounter, data reviewed, discussed with Eloy Marinelli on 09/01/19. I agree with the above assessment and plan of care. cc: Nestor Allen MD [facility]
[2019-09-01 12:57] LABS: HEPATITIS PROFILE ACUTE SEE COMMENTS
--- NOTE | 2019-09-01 13:31 | PROGRESS NOTE ---
DATE: 09/01/2019 SUBJECTIVE: The patient is unresponsive. OBJECTIVE: Vital Signs: Blood pressure 100/63, heart rate of 68, respiratory rate of 14, and temperature was 97.2 degrees. Cardiovascular: Regular rate and rhythm. Pulmonary: Bilateral breath sounds clear to auscultation. GI: Soft. Nontender and nondistended. HEENT: Conjunctiva with significant edema. LABORATORY: White count 15, hemoglobin and hematocrit 12 and 37, and platelets of 117,000. A pH 7.32, pCO2 56, PaO2 175. Sodium thankfully down to 143 with potassium of 3.4. PROBLEM LIST: 1. Clinical brain . The patient has no corneal reflex. He has no gag reflex. He has no cough reflex. Oculocephalic response is midline. We did cold calorics. His eyes stayed midline, did not deviate. I cannot get clonus or hyperdynamic reflexes. Apnea test had been completed and showed no breathing at 20 seconds on multiple, and I performed it again today so the patient is clinically brain . This is also documented by Dr. Laguerre. Family understands poor prognosis. He has been evaluated by organ donor project, and they are evaluating him as a candidate; and that is in place. 2. Subsequently, he will be extubated terminally after organ harvest; that may have to be accomplished in [place], that is at the discretion of the organ donor program. 3. Aspiration pneumonia. We will continue cefepime and Flagyl. 4. Diabetes insipidus, central. Clinically is improved on desmopressin. To meet brain requirement, he has a normal sodium and is still having these injuries. 5. Acute kidney injury is stable. We will continue to monitor. DISPOSITION: The family essentially planning to terminally extubate with organ harvest in the meantime. cc: Ari Gupta MD
[2019-09-01 16:08] LABS: ALLEN TEST NO; BE 5.7 mmoll (-3.0-3.0); BLOOD TYPE ARTERIAL; HCO3-(ACT) 29.4 mmoll (20.0-26.0); METHB 1.3 % (0.0-1.5); O2HB 97.1 % (95.0-99.0); PCO2(98.6) 35 mmHg (35-45); PO2(98.6) 364 mmHg (60-100); SAMPLE BLOOD; SAO2 100.2 % (95.0-100.0); SRATE 14 BPM; THB 12.5 g/dL (11.5-17.4); TVOL 770 mL; pH(98.6) 7.52 (7.35-7.45)
[2019-09-01 16:11] LABS: MODALITY VENTILATOR
--- NOTE | 2019-09-01 16:59 | PROVIDER PROGRESS NOTE ---
Progress Note Dr. Echeverria Progress Note/Pulmonary and or critical care Subjective: The patient remains intubated. Patients family is in the conference room with Paola from [facility] at this time. Input was appreciated from Dr. Gupta and other teams on the case. Objective: Vital Signs: (No fever in last 24 hours), WY 67, RR 14, BP 95/61 and SaO2 97% on AC 14, 50%, 550, 5. I/O: +5232 ml. Physical Examination: General: Intubated without sedation. unresponsive. HEENT: Normocephalic. Atraumatic. Trachea midline. ET tube in place. Pupils nonreactive. Chest: Mechanically ventilated. Symmetrical excursion. Clear to auscultation bilaterally. CVS: S1 and S2 appreciated. Abdomen: Soft. Non-distended. Hypoactive bowel sounds noted in all 4 quadrants. Extremities: Wasted. Neuro: Nonresponsive to pain stimuli. Labs and Radiology: Laboratory Results 08/31/19 08/31/19 08/31/19 16:33 16:33 17:42 WBC RBC Hgb Hct MCV MCH MCHC RDW Std Deviation Plt Count MPV Immature Gran % (Auto) Neut % (Auto) Lymph % (Auto) [place] % (Auto) Eos % (Auto) Baso % (Auto) Immature Gran # (Auto) Neut # (Auto) Lymph # (Auto) [place] # (Auto) Eos # (Auto) Baso # (Auto) Specimen Type Sample Site pH pCO2 pO2 HCO3 Base Excess Oxyhemoglobin ABG O2 Sat (Calculated) ABG O2 Saturation ABG Carboxyhemoglobin ABG Methemoglobin Scott Test A-a O2 Difference Total Hemoglobin Lactate Blood Gas Modality Vent Mode Spontaneous Rate FiO2 % Tidal Volume PEEP Sodium Potassium Chloride Carbon Dioxide Anion Gap BUN Creatinine Estimated GFR/1.73 m2 BUN/Creatinine Ratio Glucose POC Glucose 100 Calculated Osmolality Calcium Total Bilirubin AST ALT Alkaline Phosphatase Total Protein Albumin Globulin Albumin/Globulin Ratio Hepatitis Panel SEE COMMENTS HIV 1&2 Antibody Screen SEE COMMENTS 08/31/19 09/01/19 09/01/19 21:01 04:15 04:15 WBC 15.05 H RBC 3.98 L Hgb 12.2 L Hct 37.4 L MCV 94.0 MCH 30.7 MCHC 32.6 L RDW Std Deviation 15.6 H Plt Count 117 L MPV 10.8 H Immature Gran % (Auto) 0.3 Neut % (Auto) 84.0 H Lymph % (Auto) 8.0 L [place] % (Auto) 7.1 Eos % (Auto) 0.5 Baso % (Auto) 0.1 Immature Gran # (Auto) 0.04 Neut # (Auto) 12.64 H Lymph # (Auto) 1.20 [place] # (Auto) 1.07 H Eos # (Auto) 0.08 Baso # (Auto) 0.02 Specimen Type Sample Site pH pCO2 pO2 HCO3 Base Excess Oxyhemoglobin ABG O2 Sat (Calculated) ABG O2 Saturation ABG Carboxyhemoglobin ABG Methemoglobin Scott Test A-a O2 Difference Total Hemoglobin Lactate Blood Gas Modality Vent Mode Spontaneous Rate FiO2 % Tidal Volume PEEP Sodium 143 Potassium 3.4 L D Chloride 109 H Carbon Dioxide 26 Anion Gap 8 BUN 16 Creatinine 1.2 Estimated GFR/1.73 m2 > 60 BUN/Creatinine Ratio 13 Glucose 135 H POC Glucose 112 H Calculated Osmolality 288 Calcium 7.3 L Total Bilirubin 0.86 AST 13 ALT 15 Alkaline Phosphatase 74 Total Protein 5.9 L Albumin 2.2 L Globulin 3.7 Albumin/Globulin Ratio 0.6 Hepatitis Panel HIV 1&2 Antibody Screen 09/01/19 09/01/19 09/01/19 04:28 13:03 16:00 WBC RBC Hgb Hct MCV MCH MCHC RDW Std Deviation Plt Count MPV Immature Gran % (Auto) Neut % (Auto) Lymph % (Auto) [place] % (Auto) Eos % (Auto) Baso % (Auto) Immature Gran # (Auto) Neut # (Auto) Lymph # (Auto) [place] # (Auto) Eos # (Auto) Baso # (Auto) Specimen Type ARTERIAL ARTERIAL Sample Site R RADIAL L RADIAL pH 7.32 L 7.52 H pCO2 56 H* 35 pO2 175 H 364 H HCO3 26.0 29.4 H Base Excess 1.4 5.7 H Oxyhemoglobin 96.3 97.1 ABG O2 Sat (Calculated) 20.2 18.0 ABG O2 Saturation 99.7 100.2 H ABG Carboxyhemoglobin 2.20 1.80 ABG Methemoglobin 1.3 1.3 Scott Test YES NO A-a O2 Difference 112.0 305.0 Total Hemoglobin 14.7 12.5 Lactate 0.70 0.80 Blood Gas Modality VENTILATOR VENTILATOR Vent Mode A/C Spontaneous Rate 14 14 FiO2 % 50.0 100.0 Tidal Volume 550 770 PEEP 5.0 5.0 Sodium Potassium Chloride Carbon Dioxide Anion Gap BUN Creatinine Estimated GFR/1.73 m2 BUN/Creatinine Ratio Glucose POC Glucose 84 Calculated Osmolality Calcium Total Bilirubin AST ALT Alkaline Phosphatase Total Protein Albumin Globulin Albumin/Globulin Ratio Hepatitis Panel HIV 1&2 Antibody Screen Assessment: Acute hypoxemic respiratory failure. Intubated on 08/28/19. Bibasilar pneumonia. CXR today shows stable chest. Sepsis and shock. Significant hypernatremia. Improved. Illicit polysubstance abuse. Encephalopathy with clinical brain . Acute kidney injury with hypokalemia, hypernatremia and hyperchloremia. Nephrology on board. Improved. DNR 2. Prognosis poor with clinical brain . Plan: We checked ventilation and titrated to the patients needs per clinical protocols. We will monitor patients response closely. We will follow up ABG and CXR daily. We titrated pressor (Levophed drip) to patients needs per clinical protocols. We will monitor patients response closely. Continue antibiotics, including Cefepime and Flagyl. Appropriate GI and DVT prophylaxis. Total evaluation time in minutes: 32.
[2019-09-01 17:12] LABS: ALLEN TEST NO; BE 2.5 mmoll (-3.0-3.0); BLOOD TYPE ARTERIAL; HCO3-(ACT) 26.9 mmoll (20.0-26.0); METHB 1.4 % (0.0-1.5); O2(CT) 16.9 mL/dL (15.0-23.0); PO2(98.6) 275 mmHg (60-100); SAMPLE BLOOD; SAO2 100.9 % (95.0-100.0); THB 11.9 g/dL (11.5-17.4); pH(98.6) 7.24 (7.35-7.45)
[2019-09-01 17:15] LABS: PCO2(98.6) 74 mmHg (35-45)
[2019-09-01 17:25] LABS: BLOOD TYPE ARTERIAL; SAMPLE BLOOD
[2019-09-01 17:27] LABS: ALLEN TEST NO; BE 0.3 mmoll (-3.0-3.0); BLOOD TYPE ARTERIAL; HCO3-(ACT) 25.2 mmoll (20.0-26.0); METHB 1.2 % (0.0-1.5); O2(CT) 18.4 mL/dL (15.0-23.0); O2HB 97.3 % (95.0-99.0); PO2(98.6) 266 mmHg (60-100); SAMPLE BLOOD; SAO2 100.4 % (95.0-100.0)
[2019-09-01 17:28] LABS: pH(98.6) 7.14 (7.35-7.45)
[2019-09-01 17:29] LABS: PCO2(98.6) 94 mmHg (35-45)
[2019-09-01 17:44] LABS: INR 1.17; PROTIME 15.1 Seconds (11.0-16.0)
--- NOTE | 2019-09-01 17:47 | PROGRESS NOTE ---
DATE: 09/01/2019 EVENT NOTE: To meet criteria for brain , we had to do a full apnea test. The patient was hyperventilated at a high FIO2. He had a preliminary blood gas which showed a pH of 7.52, pCO2 of 35, PaO2 364 which meets criteria. He was taken off the assist of a ventilator, PRVC, no set rate for 10 minutes. No spontaneous breath were noted. No attempts of breaths were noted. A pH was 7.24, pCO2 was 74 which is above 60. This meets clinical criteria for brain based on an apnea trial. cc: Ari Gupta MD
[2019-09-01 17:52] LABS: AMYLASE 31 U/L (20-200); GGT 14 U/L (11-50); LDH 178 U/L (135-225)
[2019-09-01 17:53] LABS: AGAP 5; ALB/GLOB RATIO 0.5; ALBUMIN 2.2 g/dL (3.5-5.0); BUN 18 mg/dL (8-22); CALCIUM 7.1 mg/dL (8.8-10.2); CHLORIDE 105 mmol/L (98-107); COSMO 276; CREATININE 0.9 mg/dL (0.7-1.2); DIRECT BILIRUBIN 0.4 mg/dL (0.00-0.20); ESTIMATED GFR > 60; GLUCOSE 108 mg/dL (70-104); MAGNESIUM 1.4 mg/dL (1.5-2.7); PHOSPHORUS 2.6 mg/dL (2.7-4.5); POTASSIUM 3.1 mmol/L (3.5-5.1); SODIUM 137 mmol/L (136-145); TCO2 27 mmol/L (25-35); TOTAL BILIRUBIN 1.09 mg/dL (0.20-1.00); TOTAL PROTEIN 6.3 g/dL (6.3-8.3)
[2019-09-01 18:14] LABS: CK PROFILE 96 U/L (24-204); LIPASE 15 U/L (13-60)
[2019-09-01 18:40] LABS: URINE SOURCE CATH
[2019-09-01 18:44] LABS: BILIRUBIN URINE NEGATIVE (NEGATIVE); BLOOD URINE MODERATE (NEGATIVE); COLOR YELLOW; GLUCOSE URINE NEGATIVE (NEGATIVE); KETONE URINE NEGATIVE (NEGATIVE); LEUKOCYTES URINE NEGATIVE (NEGATIVE); NITRITE URINE NEGATIVE (NEGATIVE); PROTEIN URINE 100 mg/dL (NEGATIVE); SP GRAVITY URINE 1.022; TURBIDITY URINE CLEAR (CLEAR); UR EPITHELIAL CELLS <10 /HPF (<10); URINE BACTERIA NEGATIVE /HPF; URINE RBC <10 /HPF (<10); URINE WBC <10 /HPF (<10); UROBILINOGEN URINE NORMAL (NORMAL)
[2019-09-01] MEDS ORDERED: STERILE WATER INJ. ONE (19:00)
[2019-09-01] MEDS ORDERED: SYNTHROID 200 MICROGM in NS 500 ML IV SCH ×4 (19:00)
[2019-09-01] MEDS ORDERED: SOLU-MEDROL 1,000 MG in NS 100 ML IV ONE ×6 (19:00)
[2019-09-01] MEDS ORDERED: SODIUM CHLORIDE 0.9% IV ONE (19:00)
[2019-09-01] MEDS ORDERED: SYNTHROID IV ONE (19:00)
[2019-09-01] MEDS: CRESTOR NG SCH (19:03)
[2019-09-01] MEDS: PREMARIN IV SCH (19:04)
[2019-09-01 20:31] LABS: ALLEN TEST YES; BE 4.8 mmoll (-3.0-3.0); BLOOD TYPE ARTERIAL; HCO3-(ACT) 28.7 mmoll (20.0-26.0); METHB 1.2 % (0.0-1.5); MODALITY VENTILATOR; O2(CT) 16.5 mL/dL (15.0-23.0); O2HB 96.8 % (95.0-99.0); PCO2(98.6) 35 mmHg (35-45); PO2(98.6) 146 mmHg (60-100); SAMPLE BLOOD; SAO2 99.8 % (95.0-100.0); SRATE 15 BPM; THB 11.9 g/dL (11.5-17.4); TVOL 770 mL; pH(98.6) 7.51 (7.35-7.45)
[2019-09-01] MEDS ORDERED: PITRESSIN 40 UNIT in NS 100 ML IV SCH (20:45)
[2019-09-01] MEDS ORDERED: POTASSIUM PHOSPHATE 40 MMOL in NS 250 ML IV ONE (21:25)
[2019-09-01 22:43] LABS: ALLEN TEST YES; METHB 1.4 % (0.0-1.5); O2(CT) 18.9 mL/dL (15.0-23.0); PCO2(98.6) 37 mmHg (35-45); PO2(98.6) 102 mmHg (60-100); SAO2 99.2 % (95.0-100.0); SRATE 15 BPM; THB 13.9 g/dL (11.5-17.4); TVOL 770 mL; pH(98.6) 7.48 (7.35-7.45)
[2019-09-01 22:44] LABS: MODALITY VENTILATOR
[2019-09-01 22:51] LABS: BASO# 0.01 X1000 (0.0-0.2); BASO% 0.1 % (0.0-0.8); EOS# 0.04 X1000 (0.0-0.7); EOS% 0.2 % (0.0-10.0); HEMATOCRIT 38.4 % (42.0-52.0); HEMOGLOBIN 13.1 g/dL (14.0-18.0); IMM GRAN# 0.12 X1000 (0.0-0.04); IMM GRAN% 0.7 % (0.0-0.5); LYMPH# 0.89 X1000 (1.2-3.4); LYMPH% 5.4 % (20.5-51.1); MCH 30.7 PG (27-31); MCHC 34.1 g/dL (33-37); MCV 89.9 FL (81-99); MONO# 0.64 X1000 (0.11-0.59); MONO% 3.9 % (1.7-9.3); MPV 10.4 FL (7.4-10.4); NEUT# 14.68 X1000 (1.4-6.5); NEUT% 89.7 % (42.2-75.2); PLT 117 X1000 (130-400); RBC 4.27 XMIL (4.7-6.1); RDW 14.9 % (11.5-14.5); WBC 16.38 X1000 (4.8-10.8)
[2019-09-01 23:02] LABS: INR 1.34; PROTIME 16.8 Seconds (11.0-16.0); PTT 31.8 Seconds (22.3-41.8)
[2019-09-01 23:09] LABS: AGAP 9; BUN 19 mg/dL (8-22); CALCIUM 7.5 mg/dL (8.8-10.2); CHLORIDE 102 mmol/L (98-107); COSMO 276; CREATININE 0.9 mg/dL (0.7-1.2); ESTIMATED GFR > 60; GLUCOSE 134 mg/dL (70-104); MAGNESIUM 1.4 mg/dL (1.5-2.7); POTASSIUM 3.2 mmol/L (3.5-5.1); SODIUM 136 mmol/L (136-145); TCO2 25 mmol/L (25-35)
[2019-09-01 23:15] LABS: ALB/GLOB RATIO 0.9; ALBUMIN 2.7 g/dL (3.5-5.0); DIRECT BILIRUBIN 0.8 mg/dL (0.00-0.20); PHOSPHORUS 1.6 mg/dL (2.7-4.5); TOTAL PROTEIN 5.8 g/dL (6.3-8.3)
[2019-09-02] MEDS ORDERED: D5W 1,000 ML IV SCH ×2 (00:15→07:58)
[2019-09-02] MEDS: LEVOPHED 8 MG in D5 1/2 NS 250 ML IV SCH (02:28)
[2019-09-02] MEDS: PREMARIN IV SCH ×2 (02:28→13:13)
[2019-09-02] MEDS: MAXIPIME 2 GM/NS 2 GM/100 ML IVPB IV SCH ×2 (02:38→13:22)
[2019-09-02 04:24] LABS: ALLEN TEST YES; BE 0.7 mmoll (-3.0-3.0); BLOOD TYPE ARTERIAL; HCO3-(ACT) 25.4 mmoll (20.0-26.0); METHB 1.3 % (0.0-1.5); O2(CT) 20.3 mL/dL (15.0-23.0); O2HB 95.9 % (95.0-99.0); PCO2(98.6) 46 mmHg (35-45); PO2(98.6) 103 mmHg (60-100); SAMPLE BLOOD; SAO2 98.9 % (95.0-100.0); SRATE 15 BPM; TVOL 700 mL; pH(98.6) 7.37 (7.35-7.45)
[2019-09-02 04:26] LABS: MODALITY VENTILATOR
[2019-09-02 04:47] LABS: AGAP 9; ALB/GLOB RATIO 0.5; ALBUMIN 2.4 g/dL (3.5-5.0); ALKALINE PHOSPHATASE 87 U/L (32-122); BUN 21 mg/dL (8-22); CALCIUM 7.4 mg/dL (8.8-10.2); CHLORIDE 101 mmol/L (98-107); COSMO 276; CREATININE 0.9 mg/dL (0.7-1.2); ESTIMATED GFR > 60; GLUCOSE 154 mg/dL (70-104); GOT 17 U/L (10-34); GPT 16 U/L (10-44); MAGNESIUM 1.5 mg/dL (1.5-2.7); PHOSPHORUS 4.3 mg/dL (2.7-4.5); POTASSIUM 3.9 mmol/L (3.5-5.1); SODIUM 135 mmol/L (136-145); TCO2 25 mmol/L (25-35); TOTAL BILIRUBIN 1.13 mg/dL (0.20-1.00); TOTAL PROTEIN 7.1 g/dL (6.3-8.3)
[2019-09-02 04:57] LABS: INR 1.33; PROTIME 16.7 Seconds (11.0-16.0)
[2019-09-02 04:58] LABS: PTT 30.2 Seconds (22.3-41.8)
[2019-09-02] MEDS: FLAGYL 500 MG/NS 500 MG/100 ML IVPB IV SCH ×2 (05:56→13:16)
[2019-09-02] MEDS: CRESTOR NG SCH (05:56)
[2019-09-02] MEDS: LOVENOX SUBQ SCH (05:56)
--- NOTE | 2019-09-02 07:37 | Diag Imaging Result Doc PS360 ---
EXAM: CHEST-1 VIEW 09/02/2019 HISTORY: SOB TECHNIQUE: AP portable at 0537 COMMENT: There is an endotracheal tube with its tip at thoracic inlet and an NG tube with its tip below the diaphragm. There is ill-defined opacity over the lung bases which may be due to pulmonary edema. This is worse than on 09/01/2019. The possibility of small pleural effusions cannot be excluded. The heart size and pulmonary vascularity are within normal limits. IMPRESSION: Pulmonary edema plus minus pleural effusions. Electronically signed by Jeffy Alfonso 09/02/2019 7:34 AM
--- NOTE | 2019-09-02 07:59 | EKG Report ---
Test Performed on : 09/02/2019 06:23:05 AM Test Reason : AOC REQUEST Blood Pressure : / mmHG Vent. Rate : 074 BPM Atrial Rate : 074 BPM P-R Int : 150 ms QRS Dur : 086 ms QT Int : 410 ms P-R-T Axes : 062 020 019 degrees QTc Int : 455 ms Sinus rhythm. with occasional premature ventricular complexes. Otherwise normal ECG When compared with ECG of 28-AUG-2019 13:47, premature ventricular complexes. are now present Confirmed by Rocco Mcgill MD ([id number]) on 09/03/2019 7:33:38 PM
[2019-09-02] MEDS ORDERED: MISC. PHARMACY COMMUNICATION SCH (08:00)
[2019-09-02] MEDS ORDERED: SOLU-MEDROL IV SCH (08:00)
[2019-09-02] MEDS: PROTONIX IV SCH (08:56)
[2019-09-02] MEDS ORDERED: NS IV ONE (09:00)
[2019-09-02] MEDS ORDERED: ALBUMIN IV ONE (09:00)
[2019-09-02] MEDS ORDERED: SYNTHROID 200 MICROGM in NS 500 ML IV SCH (09:00)
[2019-09-02 10:56] LABS: INR 1.38; PROTIME 17.2 Seconds (11.0-16.0)
[2019-09-02 11:04] LABS: PTT 24.4 Seconds (22.3-41.8)
[2019-09-02 11:18] LABS: ALB/GLOB RATIO 0.7; ALBUMIN 2.5 g/dL (3.5-5.0); DIRECT BILIRUBIN 0.2 mg/dL (0.00-0.20); PHOSPHORUS 3.3 mg/dL (2.7-4.5); TOTAL BILIRUBIN 0.71 mg/dL (0.20-1.00)
[2019-09-02 11:19] LABS: AGAP 8; BUN 25 mg/dL (8-22); CALCIUM 7.2 mg/dL (8.8-10.2); CHLORIDE 99 mmol/L (98-107); COSMO 272; CREATININE 0.8 mg/dL (0.7-1.2); ESTIMATED GFR > 60; GLUCOSE 127 mg/dL (70-104); MAGNESIUM 1.6 mg/dL (1.5-2.7); POTASSIUM 3.7 mmol/L (3.5-5.1); SODIUM 133 mmol/L (136-145); TCO2 26 mmol/L (25-35)
[2019-09-02 12:15] LABS: ALLEN TEST YES; BE 0.5 mmoll (-3.0-3.0); BLOOD TYPE ARTERIAL; HCO3-(ACT) 25.3 mmoll (20.0-26.0); METHB 1.3 % (0.0-1.5); O2(CT) 21.8 mL/dL (15.0-23.0); O2HB 96.7 % (95.0-99.0); PCO2(98.6) 41 mmHg (35-45); PO2(98.6) 124 mmHg (60-100); SAMPLE BLOOD; SAO2 99.4 % (95.0-100.0); THB 15.9 g/dL (11.5-17.4)
[2019-09-02 12:16] LABS: MODALITY VENTILATOR
--- NOTE | 2019-09-02 12:48 | Diag Imaging Result Doc PS360 ---
EXAM: CHEST-PORTABLE 09/02/2019 HISTORY: CENTRAL LINE PLACEMENT TECHNIQUE: AP portable semiupright at 1235 COMMENT: There is a left subclavian central venous catheter with its tip near the orifice of the azygos vein. There is an NG tube which passes below the diaphragm. There is an endotracheal tube with its tip at the thoracic inlet. Compared to the previous study of 09/02/2019 at 0537 the appearance the chest has not changed significantly. There is no evidence of pneumothorax. IMPRESSION: Stable chest. Electronically signed by Jeffy Alofnso 09/02/2019 12:45 PM
--- NOTE | 2019-09-02 13:04 | OPERATIVE NOTE ---
PROCEDURE DATE: 09/02/2019 PREOPERATIVE DIAGNOSES: 1. Clinical brain . 2. Aspiration pneumonia. 3. Acute kidney injury. POSTOPERATIVE DIAGNOSES: 1. Clinical brain . 2. Aspiration pneumonia. 3. Acute kidney injury. PROCEDURE PERFORMED: Insertion of central venous catheter. SURGEON: Ruslan Puente MD. ESTIMATED BLOOD LOSS: Scant. COMPLICATIONS: None apparent. TECHNIQUE: He was placed in Trendelenburg in his ICU bed. The left subclavian area was prepped and draped in the usual sterile fashion. The left subclavian vein was accessed, drawing back dark nonpulsatile blood through the syringe. The wire passed through the needle easily. The needle was removed. The tract was dilated. A triple-lumen central venous catheter was placed. All ports cayla back blood easily and were flushed with saline. It was sutured to the skin with silk suture and a sterile dressing was applied. A chest x-ray was ordered. There were no apparent complications. cc: Ruslan Puente MD
[2019-09-02] MEDS ORDERED: STERILE WATER INJ. ONE (13:25)
[2019-09-02 14:11] LABS: ALLEN TEST YES; BE 2.4 mmoll (-3.0-3.0); BLOOD TYPE ARTERIAL; HCO3-(ACT) 26.8 mmoll (20.0-26.0); MODALITY VENTILATOR; O2HB 97.1 % (95.0-99.0); PCO2(98.6) 38 mmHg (35-45); PO2(98.6) 104 mmHg (60-100); SAMPLE BLOOD; SAO2 99.4 % (95.0-100.0); SRATE 15 BPM; THB 11.6 g/dL (11.5-17.4); TVOL 500 mL; pH(98.6) 7.45 (7.35-7.45)
[2019-09-02 14:35] LABS: BASO# 0.01 X1000 (0.0-0.2); BASO% 0.1 % (0.0-0.8); HEMATOCRIT 33.1 % (42.0-52.0); HEMOGLOBIN 11.2 g/dL (14.0-18.0); IMM GRAN# 0.04 X1000 (0.0-0.04); IMM GRAN% 0.4 % (0.0-0.5); LYMPH% 6.7 % (20.5-51.1); MCH 30.4 PG (27-31); MCHC 33.8 g/dL (33-37); MCV 89.9 FL (81-99); MONO% 1.9 % (1.7-9.3); MPV 10.5 FL (7.4-10.4); NEUT# 9.44 X1000 (1.4-6.5); NEUT% 90.9 % (42.2-75.2); PLT 92 X1000 (130-400); RBC 3.68 XMIL (4.7-6.1); RDW 14.4 % (11.5-14.5); WBC 10.39 X1000 (4.8-10.8)
[2019-09-02 14:52] LABS: ANISOCYTOSIS 2+; HYPOCHROM 1+; LYMPHS 4 % (21-51); MONO 4 % (1-9); SEGS 92 % (42-75)
[2019-09-02 15:06] LABS: AGAP 7; ALB/GLOB RATIO 0.7; ALBUMIN 2.4 g/dL (3.5-5.0); ALKALINE PHOSPHATASE 93 U/L (32-122); BUN 28 mg/dL (8-22); CALCIUM 7.1 mg/dL (8.8-10.2); CHLORIDE 103 mmol/L (98-107); COSMO 274; CREATININE 0.8 mg/dL (0.7-1.2); ESTIMATED GFR > 60; GLUCOSE 111 mg/dL (70-104); GOT 19 U/L (10-34); GPT 13 U/L (10-44); POTASSIUM 4.1 mmol/L (3.5-5.1); SODIUM 134 mmol/L (136-145); TCO2 24 mmol/L (25-35); TOTAL BILIRUBIN 0.74 mg/dL (0.20-1.00); TOTAL PROTEIN 5.7 g/dL (6.3-8.3)
--- NOTE | 2019-09-02 16:09 | Diag Imaging Result Doc PS360 ---
EXAM: CT THORAX/ABD/PELVIS W/O CON INDICATION: EVALUATION FOR TRANSPLANT TECHNIQUE: This exam was performed using automated exposure control, adjustment of mA or kV according to patient size, and/or use of iterative reconstruction technique. COMPARISON: CT chest dated 08/28/2019 FINDINGS: CHEST: There are bilateral moderate-sized pleural effusions and there is significant lower lobe atelectasis bilaterally. The atelectasis may obscure the lower lobe infiltrate seen on the previous study. There is a calcified granuloma in the right lower lobe. The aerated portions of the lungs are clear. There is no pneumothorax. An ET tube is in place. There is no cardiomegaly. There is no pericardial effusion. There is no evidence of significant lymphadenopathy. ABDOMEN/PELVIS: There is splenomegaly. The spleen measures up to 18.9 cm in craniocaudal length. There is small volume ascites tracking around the liver and layering in the pelvis. There is fluid around the gallbladder. No gallbladder wall thickening is appreciated. The liver, pancreas, adrenal glands, and kidneys are unremarkable. There is a Escalante catheter in the urinary bladder. The bladder is unremarkable, otherwise. The appendix is unremarkable. No focal bowel wall thickening or bowel obstruction is identified. An NG tube is in place with the tip in the stomach. The remainder of the GI tract is essentially unremarkable. No free abdominal gas is appreciated. IMPRESSION: 1.Bilateral moderate-sized pleural effusions and bilateral lower lobe atelectasis. 2.Small volume ascites. 3.Other incidental/nonacute findings described above. Electronically signed by Callum Gallegos 09/02/2019 4:07 PM
--- NOTE | 2019-09-02 17:12 | ECHO REPORT ---
ORDER DATE: 09/02/2019 MEASUREMENTS: Septal thickness 1.1, left ventricular internal diameter in diastole 5.0, posterior wall thickness 1.1. SUMMARY: 1. Limited study performed. Acoustic window quality is fair. 2. Aortic valve is trileaflet and opens normally on 2-dimensional images. Mitral, tricuspid, and pulmonic valves are without evidence of structural abnormality. There is very mild mitral regurgitation and trace pulmonic insufficiency. There is trace tricuspid regurgitation. Aortic root is normal in size. 3. Normal left ventricular dimensions demonstrated. The estimated left ejection fraction is 60%. No regional wall motion abnormality is evident. Left atrium, right atrium, right ventricle are normal in size with normal right ventricular systolic function. 4. No pericardial effusion. CONCLUSIONS: 1. Very mild mitral regurgitation, trace tricuspid regurgitation, and trace pulmonic insufficiency. 2. Normal estimated left ventricular ejection fraction approximately 60% without wall motion abnormality evident. cc: Silvano Kaur MD
[2019-09-02 17:49] VITALS: BP 100/66
--- NOTE | 2019-09-02 19:00 | DISCHARGE SUMMARY ---
ADMISSION DATE: 08/28/2019 DISCHARGE DATE: 09/02/2019 PROCEDURES: 1. The patient had endotracheal intubation. 2. Arterial line placement. 3. Mechanical ventilation. 4. Central line placement per Dr. Puente that was done today on the . CONSULTATIONS: 1. Dr. Echeverria, Pulmonary. 2. Dr. Laguerre, Neurology. 3. Dr. Allen, Nephrology. 4. Dr. Puente, Surgery. HISTORY: Briefly, this patient was admitted on the . He had initially been seen at [facility] with decreased responsiveness or unresponsiveness. I am a little unclear as to his mental status when he first came in. That being said, he was felt to be unresponsive. He is a known drug user. He also I believe has a history of schizophrenia, but it is not clear that he has been compliant with his medications. He was found in the passenger seat of a car. I think he was brought in or found by ambulance or fire rescue first, and brought to the ER. Initially at [facility], as far as I can tell, he was very low GCS. The patient was intubated as his mental status continued to worsen. He had [address] initially one that was a concern of cerebral edema. [facility] was contacted, but they were concerned that we had not ruled out the COVID 19 in this situation, which at that time was impossible to rule out or rule in. He was unresponsive, a Callum [facility] without any identification. He ended up having a fever 102. He had infiltrates consistent with pneumonia so he was certainly at risk for Covid, but not clear that he clearly had exposure. He did however have positive drug screen for opiates, amphetamines, methamphetamines, and cannabinoids. Upon my assessment, he was unresponsive. When I saw him at [facility], the patient was brain clinically. There was no spontaneous breathing. I got Neurology involved. I think we did an EEG, or asked for an EEG initially. Dr. Laguerre felt that the patient was clinically brain , but we would give it at least 72 hours because of the drugs in his system. He was persistently hypotensive, and had to be on Levophed norepinephrine during the entire course. He did develop significant diabetes insipidus with a sodium peaking out 178, which was likely centrally mediated. He was placed on D5, desmopressin free water flushes, and his sodium eventually improved. He developed acute kidney injury which also was felt to be either dehydration or possibly drug toxicity. In any case, the patient was admitted and he was maintained. We had a long discussion with the mother and sister. He was ended up being made a DNR. On Saturday after Dr. Laguerre reassessed him, felt this was true clinical brain , we both documented that, and prognosis was miserable either way. We started having discussions about organ donation, and the patient qualified. Mother accepted so he was evaluated for organ donation the last 2 days. We did do an apnea test, full-fledged apnea test. He was taken off the ventilator for 10 minutes, and had a CO2 that was above 65, 74, which qualified for clinical brain . We were not able to pursue EEG. The COVID testing was negative, which is not completely unsurprising considering he had other things. His HIV was negative. Hepatitis C was positive, although at this time, we do not know if it is active. Cytomegalovirus virus IgG was positive. The patient was taken over by organ harvest crew, and he will be transferred to [facility] for evaluation for organ donation, or to undergo full organ donation at their request. Mother was understanding of the care. The patient's clinical time of was felt to be due to the 2nd brain note which was 08/31 at 17:22. Discharge condition was stable. cc: Ari Gupta MD
--- NOTE | 2019-09-02 19:03 | PROVIDER PROGRESS NOTE ---
Progress Note Dr. Echeverria Progress Note/Pulmonary and or critical care Subjective: The patient remains intubated. General Surgery is at the bedside for central venous catheter insertion at this time. A full apnea test was performed yesterday afternoon. He shows no spontaneous breath. Input was appreciated from Dr. Gupta and other teams on the case. Objective: Vital Signs: T 96.3 (No fever in last 24 hours), OR 73, RR 20, BP 96/60 and SaO2 96% on AC 15, 75%, 700, 5. I/O: +3282 ml. Physical Examination: General: Intubated without sedation. unresponsive. HEENT: Normocephalic. Atraumatic. Trachea midline. ET tube in place. Pupils nonreactive. Chest: Mechanically ventilated. Symmetrical excursion. Clear to auscultation bilaterally. CVS: S1 and S2 appreciated. Abdomen: Soft. Non-distended. Hypoactive bowel sounds noted in all 4 quadrants. Extremities: Wasted. Neuro: Nonresponsive to pain stimuli. Labs and Radiology: Laboratory Results 08/31/19 09/01/19 09/01/19 16:33 20:20 22:34 WBC RBC Hgb Hct MCV MCH MCHC RDW Std Deviation Plt Count MPV Immature Gran % (Auto) Neut % (Auto) Lymph % (Auto) [place] % (Auto) Eos % (Auto) Baso % (Auto) Immature Gran # (Auto) Neut # (Auto) Lymph # (Auto) [place] # (Auto) Eos # (Auto) Baso # (Auto) Segmented Neutrophils Lymphocytes Monocytes Hypochromia Anisocytosis PT INR PTT (Actin FS) D-Dimer, Quantitative Specimen Type ARTERIAL ARTERIAL Sample Site R RADIAL R RADIAL pH 7.51 H 7.48 H pCO2 35 37 pO2 146 H 102 H HCO3 28.7 H 28.0 H Base Excess 4.8 H 4.0 H Oxyhemoglobin 96.8 96.0 ABG O2 Sat (Calculated) 16.5 18.9 ABG O2 Saturation 99.8 99.2 ABG Carboxyhemoglobin 1.80 1.80 ABG Methemoglobin 1.2 1.4 Scott Test YES YES A-a O2 Difference 345.0 387.0 Total Hemoglobin 11.9 13.9 Lactate 0.90 1.10 Blood Gas Modality VENTILATOR VENTILATOR Vent Mode A/C A/C Spontaneous Rate 15 15 FiO2 % 75.0 75.0 Tidal Volume 770 770 PEEP 5.0 5.0 Sodium Potassium Chloride Carbon Dioxide Anion Gap BUN Creatinine Estimated GFR/1.73 m2 BUN/Creatinine Ratio Glucose Calculated Osmolality Calcium Phosphorus Magnesium Total Bilirubin Direct Bilirubin AST ALT Alkaline Phosphatase Total Protein Albumin Globulin Albumin/Globulin Ratio CMV IgG & IgM SEE COMMENTS 09/01/19 09/01/19 09/01/19 22:40 22:40 22:40 WBC RBC Hgb Hct MCV MCH MCHC RDW Std Deviation Plt Count MPV Immature Gran % (Auto) Neut % (Auto) Lymph % (Auto) [place] % (Auto) Eos % (Auto) Baso % (Auto) Immature Gran # (Auto) Neut # (Auto) Lymph # (Auto) [place] # (Auto) Eos # (Auto) Baso # (Auto) Segmented Neutrophils Lymphocytes Monocytes Hypochromia Anisocytosis PT 16.8 H INR 1.34 PTT (Actin FS) 31.8 D-Dimer, Quantitative 4.00 H Specimen Type Sample Site pH pCO2 pO2 HCO3 Base Excess Oxyhemoglobin ABG O2 Sat (Calculated) ABG O2 Saturation ABG Carboxyhemoglobin ABG Methemoglobin Scott Test A-a O2 Difference Total Hemoglobin Lactate Blood Gas Modality Vent Mode Spontaneous Rate FiO2 % Tidal Volume PEEP Sodium 136 Potassium 3.2 L Chloride 102 Carbon Dioxide 25 Anion Gap 9 BUN 19 Creatinine 0.9 Estimated GFR/1.73 m2 > 60 BUN/Creatinine Ratio 21 Glucose 134 H Calculated Osmolality 276 Calcium 7.5 L Phosphorus 1.6 L Magnesium 1.4 L Total Bilirubin 2.00 H Direct Bilirubin 0.80 H AST 16 ALT 16 Alkaline Phosphatase 77 Total Protein 5.8 L Albumin 2.7 L Globulin 3.1 Albumin/Globulin Ratio 0.9 CMV IgG & IgM 09/01/19 09/02/19 09/02/19 22:40 04:00 04:10 WBC 16.38 H RBC 4.27 L Hgb 13.1 L Hct 38.4 L MCV 89.9 MCH 30.7 MCHC 34.1 RDW Std Deviation 14.9 H Plt Count 117 L MPV 10.4 Immature Gran % (Auto) 0.7 H Neut % (Auto) 89.7 H Lymph % (Auto) 5.4 L [place] % (Auto) 3.9 Eos % (Auto) 0.2 Baso % (Auto) 0.1 Immature Gran # (Auto) 0.12 H Neut # (Auto) 14.68 H Lymph # (Auto) 0.89 L [place] # (Auto) 0.64 H Eos # (Auto) 0.04 Baso # (Auto) 0.01 Segmented Neutrophils Lymphocytes Monocytes Hypochromia Anisocytosis PT INR PTT (Actin FS) D-Dimer, Quantitative Specimen Type ARTERIAL Sample Site R RADIAL pH 7.37 pCO2 46 H pO2 103 H HCO3 25.4 Base Excess 0.7 Oxyhemoglobin 95.9 ABG O2 Sat (Calculated) 20.3 ABG O2 Saturation 98.9 ABG Carboxyhemoglobin 1.70 ABG Methemoglobin 1.3 Scott Test YES A-a O2 Difference 374.0 Total Hemoglobin 15.0 Lactate 1.60 Blood Gas Modality VENTILATOR Vent Mode A/C Spontaneous Rate 15 FiO2 % 75.0 Tidal Volume 700 PEEP 5.0 Sodium 135 L Potassium 3.9 D Chloride 101 Carbon Dioxide 25 Anion Gap 9 BUN 21 Creatinine 0.9 Estimated GFR/1.73 m2 > 60 BUN/Creatinine Ratio 23 Glucose 154 H Calculated Osmolality 276 Calcium 7.4 L Phosphorus 4.3 Magnesium 1.5 Total Bilirubin 1.13 H Direct Bilirubin 0.30 H AST 17 ALT 16 Alkaline Phosphatase 87 Total Protein 7.1 Albumin 2.4 L Globulin 4.7 Albumin/Globulin Ratio 0.5 CMV IgG & IgM 09/02/19 09/02/19 09/02/19 04:10 10:30 10:30 WBC RBC Hgb Hct MCV MCH MCHC RDW Std Deviation Plt Count MPV Immature Gran % (Auto) Neut % (Auto) Lymph % (Auto) [place] % (Auto) Eos % (Auto) Baso % (Auto) Immature Gran # (Auto) Neut # (Auto) Lymph # (Auto) [place] # (Auto) Eos # (Auto) Baso # (Auto) Segmented Neutrophils Lymphocytes Monocytes Hypochromia Anisocytosis PT 16.7 H INR 1.33 PTT (Actin FS) 30.2 D-Dimer, Quantitative 4.84 H Specimen Type Sample Site pH pCO2 pO2 HCO3 Base Excess Oxyhemoglobin ABG O2 Sat (Calculated) ABG O2 Saturation ABG Carboxyhemoglobin ABG Methemoglobin Scott Test A-a O2 Difference Total Hemoglobin Lactate Blood Gas Modality Vent Mode Spontaneous Rate FiO2 % Tidal Volume PEEP Sodium 133 L Potassium 3.7 Chloride 99 Carbon Dioxide 26 Anion Gap 8 BUN 25 H Creatinine 0.8 Estimated GFR/1.73 m2 > 60 BUN/Creatinine Ratio 31 Glucose 127 H Calculated Osmolality 272 Calcium 7.2 L Phosphorus 3.3 Magnesium 1.6 Total Bilirubin 0.71 Direct Bilirubin 0.20 AST 13 ALT 14 Alkaline Phosphatase 74 Total Protein 6.0 L Albumin 2.5 L Globulin 3.5 Albumin/Globulin Ratio 0.7 CMV IgG & IgM 09/02/19 09/02/19 09/02/19 10:30 12:05 14:00 WBC RBC Hgb Hct MCV MCH MCHC RDW Std Deviation Plt Count MPV Immature Gran % (Auto) Neut % (Auto) Lymph % (Auto) [place] % (Auto) Eos % (Auto) Baso % (Auto) Immature Gran # (Auto) Neut # (Auto) Lymph # (Auto) [place] # (Auto) Eos # (Auto) Baso # (Auto) Segmented Neutrophils Lymphocytes Monocytes Hypochromia Anisocytosis PT 17.2 H INR 1.38 PTT (Actin FS) 24.4 D-Dimer, Quantitative 3.70 H Specimen Type ARTERIAL ARTERIAL Sample Site R RADIAL R RADIAL pH 7.40 7.45 pCO2 41 38 pO2 124 H 104 H HCO3 25.3 26.8 H Base Excess 0.5 2.4 Oxyhemoglobin 96.7 97.1 ABG O2 Sat (Calculated) 21.8 16.0 ABG O2 Saturation 99.4 99.4 ABG Carboxyhemoglobin 1.30 1.30 ABG Methemoglobin 1.3 1.0 Scott Test YES YES A-a O2 Difference 360.0 383.0 Total Hemoglobin 15.9 11.6 Lactate 1.30 1.40 Blood Gas Modality VENTILATOR VENTILATOR Vent Mode A/C A/C Spontaneous Rate 15 FiO2 % 75.0 75.0 Tidal Volume 500 PEEP 5.0 Sodium Potassium Chloride Carbon Dioxide Anion Gap BUN Creatinine Estimated GFR/1.73 m2 BUN/Creatinine Ratio Glucose Calculated Osmolality Calcium Phosphorus Magnesium Total Bilirubin Direct Bilirubin AST ALT Alkaline Phosphatase Total Protein Albumin Globulin Albumin/Globulin Ratio CMV IgG & IgM 09/02/19 09/02/19 14:05 14:05 WBC 10.39 RBC 3.68 L Hgb 11.2 L Hct 33.1 L MCV 89.9 MCH 30.4 MCHC 33.8 RDW Std Deviation 14.4 Plt Count 92 L MPV 10.5 H Immature Gran % (Auto) 0.4 Neut % (Auto) 90.9 H Lymph % (Auto) 6.7 L [place] % (Auto) 1.9 Eos % (Auto) 0.0 Baso % (Auto) 0.1 Immature Gran # (Auto) 0.04 Neut # (Auto) 9.44 H Lymph # (Auto) 0.70 L [place] # (Auto) 0.20 Eos # (Auto) 0.00 Baso # (Auto) 0.01 Segmented Neutrophils 92 H Lymphocytes 4 L Monocytes 4 Hypochromia 1+ Anisocytosis 2+ PT INR PTT (Actin FS) D-Dimer, Quantitative Specimen Type Sample Site pH pCO2 pO2 HCO3 Base Excess Oxyhemoglobin ABG O2 Sat (Calculated) ABG O2 Saturation ABG Carboxyhemoglobin ABG Methemoglobin Scott Test A-a O2 Difference Total Hemoglobin Lactate Blood Gas Modality Vent Mode Spontaneous Rate FiO2 % Tidal Volume PEEP Sodium 134 L Potassium 4.1 Chloride 103 Carbon Dioxide 24 L Anion Gap 7 BUN 28 H Creatinine 0.8 Estimated GFR/1.73 m2 > 60 BUN/Creatinine Ratio 35 Glucose 111 H Calculated Osmolality 274 Calcium 7.1 L Phosphorus Magnesium Total Bilirubin 0.74 Direct Bilirubin AST 19 ALT 13 Alkaline Phosphatase 93 Total Protein 5.7 L Albumin 2.4 L Globulin 3.3 Albumin/Globulin Ratio 0.7 CMV IgG & IgM Assessment: Acute hypoxemic respiratory failure. Intubated on 08/28/19. Bibasilar pneumonia. CXR this morning showed pulmonary edema +/- pleural effusions. Sepsis and shock. Significant hypernatremia. Improved. Illicit polysubstance abuse. Encephalopathy with clinical brain . Acute kidney injury with hypokalemia, hypernatremia and hyperchloremia. Nephrology on board. Improved. DNR 2. Prognosis poor with clinical brain . Plan: We checked ventilation and titrated to the patients needs per clinical protocols. We will monitor patients response closely. We will follow up ABG and CXR daily. We titrated pressor (Levophed and Vasopressin) to patients needs per clinical protocols. We will monitor patients response closely. Continue antibiotics, including Cefepime and Flagyl. COVID-19 results pending. Appropriate GI and DVT prophylaxis. Waiting for transferring to [facility] for organ harvest at this time. Total evaluation time in minutes: 31.
[2019-09-03 09:54] LABS: HCV BY PCR SEE COMMENTS
== END 2019-09-02 15:40 | disposition short-term general hospital (02) | DRG 917 ==
LOC: P.ED 23:08 → SUATTDRO 08-28 01:50 → ICU 08-28 01:50 → EDBD 08-28 01:50 → ICU 08-28 09:32
PROVIDERS: ATTEND Internal Medicine